=== PATIENT | male | born 1950 | race Caucasian/White ===

== ENCOUNTER 2025-03-12 17:37 | Inpatient (IN) ==
--- NOTE | 2025-03-12 17:56 | Emergency Department Note ---
History of Present Illness General Chief complaint: Heart Alert Stated complaint: HEART ALERT Time Seen by Provider: 03/12/25 17:46 Source: patient Mode of arrival: EMS History of Present Illness Patient is a 75-year-old male who was sent over from [facility] as a STEMI alert. Fluids chest pain started around noon today. He took 7 doses of 324 mg of aspirin prior to arrival. He did receive morphine and initial dose of heparin. Pain improved on arrival. Past Med/Surg History Problem List (Updated 03/12/25 @ 17:56 by Colton Aceves MD) ST elevation (STEMI) myocardial infarction (Acute) Social History Smoking Status: Current every day smoker Preferred Language: Niuean Feels Safe at Home: Yes Review of Systems Review of systems negative outside of positive findings mentioned in HPI. Physical Exam Vital Signs Vital Signs - 24 hr 03/12/25 17:44 Temperature 36.7 C Temperature Source Oral Pulse Rate 73 Respiratory Rate 19 Respiratory Effort / Characteristics Non-Labored Spontaneous Respiratory Depth Normal Respiratory Pattern Regular Blood Pressure 180/93 H Blood Pressure Mean 122 Pulse Oximetry 97 Oxygen Delivery Method Room Air Sepsis Recent Fever Within 48 Hours No Sepsis New/Unexplained Change in Mental Status N/A Sepsis Action Taken by Nursing No Action Required See below. Constitutional WD/WN, vitals as above Respiratory normal respiratory effort, lungs clear to auscultation Cardiovascular RRR, no murmur, no edema Medical Decision Making Differential Diagnosis DDx includes but not limited to: STEMI ECG Data Attestation: I personally reviewed and interpreted this ECG as follows: Indication: + chest pain and + other (Repeat ) Rate (beats per minute): 77 Rhythm: + sinus rhythm and + other (Frequent PACs ) ECG ST segments: + ST elevation (Inferolateral ) Comparison ECG Date: no prior available MDM Narrative Patient is a 75-year-old male who stepped accepted as a STEMI transfer from [facility]. Hemodynamically stable on arrival. Heart alert was activated after I reviewed initial transmitted EKG prior to arrival. Dr. Acosta with cardiology at bedside upon patient arrival with plans to to Technical Supervisor for definitive management. Will be admitted to hospitalist service post cath. Stable for transfer from ED to labor and delivery nurse. Impression & Plan ST elevation (STEMI) myocardial infarction Discharge Plan Visit Data Chief Complaint: Heart Alert Stated Complaint: HEART ALERT ED Provider: Colton Aceves Discharge Problem: ST elevation (STEMI) myocardial infarction Patient Disposition: Admitted As Inpatient Condition: Serious Discharge Instructions Interventions: ED Discharge Assessment Last Done: 03/12/25 17:53 Forms Stand Alone Forms: [facility] Referrals Referrals: PCP,NO [Primary Care Provider] -
[2025-03-12] MEDS: EPTIFIBATIDE 2 MG/ML 10 ML VIAL (CATH LAB USE ONLY) IV ONE ×2 (18:52→18:59)
[2025-03-12] MEDS: NITROGLYCERIN/D5W 100MCG/ML 20ML SYR ONE (18:52)
[2025-03-12] MEDS: niCARdipine 2,000 MCG/20 ML SYR ONE (18:52)
[2025-03-12] MEDS: EPTIFIBATIDE 0.75 MG/ML 75MG VIAL (CATH LAB USE ONLY) IV ONE (18:53)
[2025-03-12] MEDS: OPTIRAY 350 ONE (19:24)
[2025-03-12] MEDS: HEPARIN (PORCINE) 1000 UNIT/ML 10 ML (CATH LAB USE ONLY) ONE (19:24)
[2025-03-12] MEDS: MIDAZOLAM HCL 1 MG/ML 2ML VIAL ONE (19:24)
[2025-03-12] MEDS: ATROPINE SULFATE 0.1 MG/ML 10ML SYR IV ONE (19:25)
[2025-03-12] MEDS: CLOPIDOGREL BISULFATE 300 MG TAB ONE (19:30)
--- NOTE | 2025-03-12 19:33 | Post Anesthesia Assessment ---
Date of Service March 12, 2025 Post Sedation Assessment Vital Signs Temp Pulse Resp BP Pulse Ox O2 Del Method 03/12/25 17:44 36.7 C 73 19 180/93 H 97 Room Air Recovery Score Activity: Moves 4 extremities Respiration: Deep Breath/Cough Circulation: +/-20% PreAnes Value Consciousness: Fully Awake Oxygen Saturation: > 92% On Room Air Discharge Sedation Level of Care: Fast Track Phase II Post Sedation Plan On clinical assessment, the patient appears to have tolerated the sedation without complications. Patient is recovering as anticipated. Patient will continue to be monitored by nursing and may be discharged when sedation discharge criteria are met per below protocol. Upon Completions of procedure up to 15 minutes continue every 5 minute vital signs and the P.A.R. score; then discharge to a Phase I or Fast Track to Phase II per the following guidelines: * Discharge Patient to appropriate Phase II area if PAR is 8 or greater or return to pre- procedure baseline. The post - procedure orders will be as directed. * If PAR score is less than 8 or not return to pre-procedure baseline then patient will follow Phase I monitoring till PAR is reached for Phase II. The Phase I may be done in procedure room or may call to secure a Phase I area. * If naloxone or flumazenil are used for reversal, hold in Phase I for continued monitoring from when last reversal dose was given for a minimum of 60 minutes or longer pending the nurse and/or physician discretion of patient condition before discharge to Phase II. Please call the Sedation Physician to re-evaluate and complete post-note for discharge to Phase II area. Do NOT discharge from procedure sedation or Phase 1 until post- sedation evaluation note is complete by procedure /sedation MD Sedation Discharge Instructions to be given to the patient at discharge to home. [facility] Procedure Codes (Charges) Indication for Procedure Indication for procedure: STEMI
--- NOTE | 2025-03-12 19:35 | Pre Anesthesia Assessment ---
Date of Service March 12, 2025 Pre Sedation Assessment Vital Signs Temp Pulse Resp BP Pulse Ox O2 Del Method 03/12/25 17:44 36.7 C 73 19 180/93 H 97 Room Air Cardiovascular RRR, no murmur, no edema Respiratory normal respiratory effort, lungs clear to auscultation Pre-Sedation Airway Assessment Smoking Status: Current every day smoker class IV ASA 4 Notes The planned sedation has been discussed with the patient. Informed Consent was obtained. I have identified the patient, determined the appropriateness of sedation and have assessed the patient immediately prior to the procedure. All medicine(s) and interventions are by my order. THIS WAS A LATE ENTRY FOR EMERGENCYPROCEDURE.
[2025-03-12] MEDS ORDERED: EPTIFIBATIDE BOLUS/DRIP IV STA (19:49)
[2025-03-12] MEDS ORDERED: ONDANSETRON INJ 2 MG/ML 2 ML VIAL IV PRN (19:49)
[2025-03-12] MEDS ORDERED: ATROPINE SULFATE 0.1 MG/ML 10ML SYR IV PRN (19:49)
--- NOTE | 2025-03-12 20:09 | Post Operative Brief Note ---
Cardiology Brief Post Op Date of Surgery March 12, 2025 Pre & Post Diagnosis Operation Date: 03/12/25 05:45 <No data on this case meets the specified criteria> Procedure 1. Selective right and left coronary angiography 2. PCI of RCA for acute ST elevation IN Brief description: Patient brought to the cardiac catheterization suite as an emergency for acute inferior ST elevation IN. Shaved and prepped in the usual sterile fashion. Right radial access obtained. Medications including intra-arterial nicardipine, intra-arterial nitroglycerin, IV heparin, fentanyl, and Versed were all utilized. Left coronary angiography in orthogonal views. Right coronary angiography in orthogonal views. Given findings on diagnostic coronary angiography he then underwent PCI of the RCA. 4 overlapped drug-eluting stents were utilized. Right coronary stented proximally to early distal. GILMER 0 flow improved to GILMER-3 flow. The PDA also became patent. The posterolateral branch remained occluded. Summary: 1. Patient has severe multivessel coronary disease including left main, LAD, and circumflex with branches. There is [id number] collateralization. 2. Culprit vessel for inferior ST elevation IN was the RCA. This was 100% occluded proximally with collateralization to the distal branch vessel. 3. Successful complex and extensive stenting of the RCA with 4 overlapped drug- eluting stents. 4. Patient will be on aspirin 325 mg daily, was loaded with Plavix 600 mg p.o. x 1 and will continue with 75 mg p.o. daily, and was also provided with Integrilin as the double bolus administration and drip to be continued for 12 hours. 5. Guideline directed medical therapy for secondary prevention of coronary disease initiated with aspirin, metoprolol tartrate, losartan, and atorvastatin. These will be titrated to achieve clinical targets. 6. Because of patient's extensive left coronary system disease we will need to be vigilant for recurrent symptoms. He will be considered for transfer to tertiary center if his left coronary disease becomes problematic. Ideally, he would wait 30 days minimum for any bypass surgery done in an elective manner. 7. Anticipate the patient will require hospitalization for a minimum of 72 hours and potentially longer pending evolution of his clinical course. Banking Representative López Acosta MD, PhD Project Engineering Manager Emmy Khalil CHECK SERVICES CLERK Estimated Blood Loss 5 Findings Consistent with Post-Op Diagnosis Anesthesia Type RN Sedation Complications none Disposition Disposition: Surgical ICU [facility] Cardiac Procedure Charge Indication for Procedure Indication for procedure: Acute ST elevation IN.
--- NOTE | 2025-03-12 20:14 | History & Physical Report ---
Date of Service March 12, 2025 Assessment & Plan (1) ST elevation (STEMI) myocardial infarction: (2) HTN (hypertension): (3) Atherogenic dyslipidemia: (4) Current smoker: Plan The patient was transferred to [facility] emergency department from [facility] as a STEMI alert. He had developed chest pain around noon today. He had taken 7 doses of 324 mg of aspirin prior to arrival there. He did receive morphine 4 mg IV, and was started on a heparin bolus/drip prior to transfer. He has a previous history of hypertension, coronary disease, atherogenic dyslipidemia, and benign essential hypertension. He was taken emergently to the cardiac Elementary Ell Teacher by interventional cardiology Dr. Acosta. He is being admitted to the ICU postprocedure in stable condition, having received 4 overlapping drug-eluting stents to the RCA, proximal to early distal. STEMI/CAD/hypertension- Status post cardiac catheterization emergently for with placement of 4 overlapping ROLO to the RCA lesion proximal to early distal. Post cath orders per interventional cardiology Dr. Acosta. Continuing on Integrilin infusion Metoprolol tartrate 25 mg p.o. twice daily, Ecotrin 325 mg p.o. every morning, clopidogrel 75 mg p.o. every morning, losartan 25 mg p.o. every morning. Hyperlipidemia- Atorvastatin 40 mg every morning. Fasting lipid panel in the a.m. Hemoglobin A1c in the a.m. Tobacco use disorder- Cessation counseling Patient refused patch GERD- Pantoprazole 40 mg every morning. History of Present Illness Chief Complaint: The patient was transferred to [facility] emergency department from [facility] as a STEMI alert. He had developed chest pain around noon today. He had taken several doses of 324 mg of aspirin prior to arrival. He did receive morphine 4 mg IV, and was started on a heparin bolus/drip prior to transfer. He has a previous history of hypertension, coronary disease, atherogenic dyslipidemia, benign essential hypertension. He was taken emergently to the cardiac Elementary [employer] Teacher by interventional cardiology Dr. Acosta. He is being admitted to the ICU postprocedure in stable condition, having received 4 overlapping drug-eluting stents to the RCA, proximal to early distal. Primary Care Provider: NO PCP Allergies Allergy/AdvReac Type Severity Reaction Status Date / Time Penicillins Allergy Rash Verified 03/12/25 20:24 Past Med/Surg History Problem List (Updated 03/13/25 @ 01:02 by Shadi Brizuela MD) HTN (hypertension) Coronary artery disease Atherogenic dyslipidemia ST elevation (STEMI) myocardial infarction (Acute) Medical History (Updated 03/13/25 @ 01:02 by Shadi Brizuela MD) Alcohol use Current smoker GERD (gastroesophageal reflux disease) Family History (Updated 03/12/25 @ 20:37 by PRADIP Morris) Father Coronary heart disease Myocardial infarction Hypertension Heart disease Brother Coronary heart disease Myocardial infarction Hypertension Heart disease Mother Kidney disease Grandmother Stroke Social History Smoking Status: Current every day smoker Tobacco Type: Cigarettes Cigarettes Per Day: 1.5 packs/day; Hx Alcohol Use: Yes Alcohol type: beer Hx Substance Use: No Preferred Language: Surinamese Communication Ability: Effective Flash Welder Required: No Beliefs That Will Affect Care: None Current Living Situation: Alone Feels Safe at Home: Yes Assistive Devices: Glasses Review of Systems Review of Systems: The patient, seen postprocedure, denies chest pain, palpitations, shortness of breath, dyspnea on exertion, cough, lower extremity swelling, sore throat, fevers, chills, sweats, nausea, vomiting, diarrhea, constipation, abdominal pain, pelvic pain, blood in urine or stool, dysuria, urinary frequency or urgency, lightheadedness, dizziness, headache, memory loss, loss of consciousness, imbalance, focal or generalized weakness, numbness or tingling in arms or legs, generalized arthralgias or myalgias, back or neck pain, or night sweats. The review of systems is otherwise negative other than for that already noted above, and at least 10 systems have been reviewed. Physical Exam Physical Exam: The patient is awake, alert and oriented 3, well developed and well nourished, normocephalic and atraumatic, lying in bed and in no acute distress. HEENT--PERRL, EOMI, mucous membranes and oropharynx normal Neck--supple. No JVD. No bruits. Thyroid normal, trachea midline, no adenopathy. Heart--normal S1 and S2. No murmurs, rubs or gallops. Lungs--clear bilaterally, no respiratory distress, no accessory muscle use. Abdomen--normal bowel sounds and soft. Nontender. Nondistended, no hernias or masses, no organomegaly. Extremities--No edema. Dermatologic--normal skin turgor, normal color, no abnormal lymph nodes, no rash. Neurologic--cranial nerves II through XII grossly intact. Rheumatologic--normal range of motion. Psychiatric--normal affect. Results & Data Results & Data Vital Signs (Past 12 Hours) Vital Signs Temp Pulse Resp BP Pulse Ox O2 Del Method 03/12/25 17:44 36.7 C 73 19 180/93 H 97 Room Air Laboratory Results Laboratory Results WBC 6.51 K/ul (4.8-10.8) 03/12/25 20:53 RBC 4.95 M/uL (4.70-6.10) 03/12/25 20:53 Hgb 15.6 g/dl (14.0-18.0) 03/12/25 20:53 Hct 44.0 % (42.0-52.0) 03/12/25 20:53 MCV 88.9 fL (80.0-100.0) 03/12/25 20:53 MCH 31.5 pg (25.0-34.0) 03/12/25 20:53 MCHC 35.5 g/dL (32.0-36.0) 03/12/25 20:53 RDW Std Deviation 45.2 fL (36.4-46.3) 03/12/25 20:53 RDW Coeff of Sherine 13.8 % (11.5-14.5) 03/12/25 20:53 Plt Count 164 K/uL (130-400) 03/12/25 20:53 MPV 10.7 fL (9.4-12.4) 03/12/25 20:53 Immature Gran % (Auto) 0.3 % 03/12/25 20:53 Neut % (Auto) 63.8 % 03/12/25 20:53 Lymph % (Auto) 27.8 % 03/12/25 20:53 [place] % (Auto) 7.1 % 03/12/25 20:53 Eos % (Auto) 0.5 % 03/12/25 20:53 Baso % (Auto) 0.5 % 03/12/25:53 Neut # (Auto) 4.16 K/uL (1.40-6.50) 03/12/25 20:53 Lymph # (Auto) 1.81 K/uL (1.20-3.40) 03/12/25 20:53 [place] # (Auto) 0.46 K/uL (0.11-0.59) 03/12/25 20:53 Eos # (Auto) 0.03 K/uL (0.00-0.50) 03/12/25 20:53 Baso # (Auto) 0.03 K/uL (0.00-0.20) 03/12/25 20:53 Immature Gran # (Auto) 0.02 K/uL (0.01-0.20) 03/12/25 20:53 Activ Coag Time Kaolin 250 SECONDS (94-140) H 03/12/25 19:25 Sodium 137 mmol/L (136-145) 03/12/25 20:53 Potassium 3.5 mmol/L (3.5-5.1) 03/12/25 20:53 Chloride 103 mmol/L (98-107) 03/12/25 20:53 Carbon Dioxide 25 mmol/L (21-32) 03/12/25 20:53 Anion Gap 9 (3-11) 03/12/25 20:53 BUN 11 mg/dl (6-23) 03/12/25 20:53 Creatinine 0.68 mg/dl (0.6-1.4) 03/12/25 20:53 Est Cr Clr Drug Dosing 95.4 ml/min 03/12/25 20:53 eGFR 96.33 03/12/25 20:53 BUN/Creatinine Ratio 16.2 (10-20) 03/12/25 20:53 Glucose 115 mg/dl (70-99(Fasting)) H 03/12/25 20:53 POC Glucose 104 mg/dl (70-99) H 03/12/25 20:43 Calcium 8.9 mg/dl (8.6-10.3) 03/12/25 20:53 Magnesium 1.9 mg/dl (1.7-2.4) 03/12/25 20:53 Nasal Screen MRSA (PCR) Negative (Negative) 03/12/25 Unknown Code Status & VTE Plan Code Status full code VTE Prophylaxis Plan VTE Prophylaxis will be ordered: Yes PG Care Time/CCT Total # of Minutes Spent Total Time Spent with Patient: Total time spent is greater than 50% in coordination of care (as documented) at patient's floor/unit and/or counseling patient: Coding Level of Care Code 42049 INT INP/OBS CARE 3/75MIN Diagnoses ST elevation (STEMI) myocardial infarction I21.3 HTN (hypertension) I10 Atherogenic dyslipidemia E78.5 Current smoker F17.200
--- NOTE | 2025-03-12 20:26 | Cardiology Consultation ---
Date of Consultation March 12, 2025 Assessment & Plan (1) ST elevation (STEMI) myocardial infarction: Status post PCI of the RCA. Severe residual disease. Treated with 4 overlapping drug-eluting stents. Will remain on aspirin 325 mg daily plus Plavix 75 mg p.o. daily for up to 1-2 years. Also placed on Integrilin drip to be continued for 12 hours until Plavix is fully loaded and active. Echocardiogram was requested to evaluate EF, etc. I anticipate that he will require 72 hours minimum admission given his complex disease. (2) Benign essential hypertension: Blood pressure very elevated on admission. We have placed him on metoprolol to tartrate 25 mg p.o. twice daily and losartan 25 mg p.o. daily. We will titrate his regimen to achieve systolic blood pressure less than 140 mmHg. (3) Atherogenic dyslipidemia: Patient is high risk. High intensity statin therapy initiated with atorvastatin 40 mg daily. A fasting lipid panel has been requested. We are targeting a 50% reduction in his baseline LDL. Further recommendations pending results of the lipid panel. (4) Coronary artery disease: Severe multivessel coronary disease. He has severe residual disease in the left coronary system which may require surgical revascularization. He received drug- eluting stents to the RCA for acute MS. The stents were Aj ROLO which can allow for discontinuation of dual antiplatelet therapy as early as 30 days post implant. We would consider that if he is to undergo surgery within that timeframe. I am interested to see how he does with regards to symptoms. If he has no symptoms we can delay surgical evaluation. However, if he has symptoms with exertion despite the PCI then I think we will recommend an early evaluation at tertiary center. We also can provide antianginals when appropriate. I have recommended that he participate in cardiac rehab. Certainly needs to stop smoking. We will check hemoglobin A1c to see if he has occult diabetes. History of Present Illness Reason for Consultation: Acute MS Attending Physician: López Acosta MD, PhD History of Present Illness Pleasant 75-year-old gentleman from [place] who visits his daughter regularly every other month here in [place]. He developed upper back pain and a severe headache earlier today beginning around 12:30 PM. He took 7 aspirin through the course of the early afternoon and eventually sought medical attention at the [facility]. There, EKG demonstrated evidence of acute inferior ST elevation MS. He was transported via ambulance to the [facility] emergency department where I saw him on arrival. At that time, he denied any chest pain or shortness of breath and stated that his back pain was significantly improved. EKG done in the emergency department was consistent with acute inferior ST elevation MS. After informed consent was provided he was taken emergently to the cardiac catheterization suite where he underwent diagnostic coronary angiography. This revealed severe multivessel coronary disease involving the left main, circumflex and branches, as well as the LAD. The RCA was noted to be 100% occluded and there were [id number] collateralization. A coronary guidewire was successfully passed across the proximal occlusion and a complex multi stent procedure to open the RCA was performed. There was good angiographic outcome and he had no discomfort at the end of the procedure. The RCA was patent as was the PDA. Posterolateral branch was occluded and not amenable to PCI. He is now being admitted to the ICU for further workup and management. As it turns out, patient has been having headaches and upper back pain on and off for the past few weeks. Usually responds well to aspirin. His blood pressure was noted to be quite elevated on presentation. His daughter tells me that he lives in [place] and comes to visit her and the kids about every other month. He smokes a pack a day and has done so for many decades. In [place] he has siblings who live nearby but he does not live in the home with anyone else. His daughter and I discussed his residual coronary disease and my recommendation that he be seen in the near future at a tertiary center regarding revascula rization. Had he not presented with acute MS now I would have recommended CABG based on the coronary angiography. She understands this. She is followed by [facility] primary care provider and feels that should he require surgery in the near future she would like to have him referred to [place]. We also discussed that the clinical course over the next 2 to 3 days will determine whether or not we need to plan for surgery in the near future or if that will be further down the road. He could certainly have surgery in [place] but it may be preferable for him to have his surgery locally since his family is here for support, etc. Allergies Allergy/AdvReac Type Severity Reaction Status Date / Time Penicillins Allergy Rash Verified 03/12/25 20:24 Patient History Social History Smoking Status: Current every day smoker Preferred Language: Maldivian Feels Safe at Home: Yes Review of Systems Review of Systems: Negative except as per HPI Physical Exam Constitutional: WD/WN, vitals as above Neck: No JVD Respiratory: Clear to auscultation bilaterally. No wheezing, rhonchi, or rales. Diminished air movement. Cardiovascular: Regular rate and rhythm with occasional ectopy. Do not appreciate any rubs or murmurs. 2+ distal pulses. Musculoskeletal: no cyanosis or clubbing, extremities motor strength 5/5 Neurologic: Cognition is intact. Speech is fluent. No focal deficits. Psychiatric: A+Ox3, euthymic affect Results & Data Vital Signs (Past 12 Hours) Vital Signs Temp Pulse Resp BP Pulse Ox O2 Del Method 03/12/25 17:44 36.7 C 73 19 180/93 H 97 Room Air PG Care Time/CCT Total # of Minutes Spent Total Time Spent with Patient: Total time spent is greater than 50% in coordination of care (as documented) at patient's floor/unit and/or counseling patient: 90 minutes critical care time was spent in the initial evaluation of the patient, review of available records, discussion with the family, ER staff, and the patient himself. This also includes the time spent in formulation and implementation of plan of care and all associated documentation. This time is exclusive of the time spent for the procedure. Coding Level of Care Code 49411 CRITICAL CARE 1ST 30-74M Diagnoses ST elevation (STEMI) myocardial infarction I21.3 Benign essential hypertension I10 Atherogenic dyslipidemia E78.5 Coronary artery disease I25.10 Time Spent (min) 90
--- NOTE | 2025-03-12 20:42 | Critical Care Consultation ---
Date of Consultation March 12, 2025 Assessment & Plan (1) ST elevation (STEMI) myocardial infarction: (2) HTN (hypertension): (3) Coronary artery disease: Plan Reason Critically Ill: 75 YOM transfer from outside [facility] for STEMI, taken urgently to the medical lab scientist where he received 4 ROLO to the RCA. To the ICU for continued monitoring and hemodynamic support Neuro - No acute needs. ETOH use CAM ICU: NEGATIVE - attempt to keep circadian rhythm, frequent re-orientation with attempt to minimize ICU delirium - Follow for ETOH withdrawal- 3-4 beers per day - PAWS - 0 Cardiac - STEMI, HTN - patient presents with headache and back pain noted STEMI on ECG- Received 4 ROLO to RCA - BB per cards- will receive dose now - ARB per cards- will dose now related to hypertension - Antiplatelets per cards- Currently ordered for ASA, Plavix and Integrilin infusion - ECHO in am- further GDMT pending results - Lipid Panel in AM- Atorvastatin 40mg daily ordered by cards - HGBa1C- in am- GDMT as directed by results - HTN- likely long standing with history of headaches - does not follow with PCP - As above Losartan now, BB now- if resistant to lowering will add IV agents- Hydralazine, Cardene if needed Respiratory - No acute need- hx Current smoker - will need smoking cessation counseling and further support as needed- currently declines nicotine patch - education will need to be provided in regards to smoking and stent occlusion GI - No acute needs. Hx GERD - PPI - Diet advance as tolerated RENAL/LYTES - No acute needs - BMP electrolytes now- replete if indicated - Keep K ~4.0, MG ~ 2.0 - No acute needs - voiding spontaneously ENDO - Follow HGBa1c, BG checks- ICU hyperglycemic protocol- goal <180mg/dl HEME - No acute needs - Follow for evidence of bleeding, transfuse for HGB <8.0 or symptomatic, ID - NO concerns at this time for infective causes LINES/IV ACCESS - Continue use of these lines DVT PROPHYLAXIS - SCDS, ambulation, ASA, Plavix DISPO: ICU until hemodynamics and symptomatology are proven stable. I have personally spent 45 minutes of care time in the direct management of this patient. This is a life/limb threatening event. This includes time spent evaluating patient, direct bedside care, chart review, placing orders, interpretation of diagnostic studies, discussion with consultants, patient, and family members, as well as other required patient management activities. This time is exclusive of all separately billable procedures, and separate from and in addition to any other critical care service time. Thank you for allowing us to participate in the care of this patient. Please refer to my attending physician's documentation for any further recommendations. Supervising Physician Co-Signing Physician Notes I, James Ingram MD, reviewed the physical exam, assessment, plan, and management as documented by the Advanced Care Provider PRADIP Morris, for this patient encounter. I discussed the case with them, confirmed the findings, and I concur with the proposed plan of care. I was available for consultation throughout the encounter and provided guidance as needed. History of Present Illness Reason for Consultation: STEMI s/p 4 ROLO to RCA Requesting Physician: Shadi Brizuela MD Attending Physician: Shadi Brizuela MD History of Present Illness 75 YOM that does not follow with PCP and only reports being on PPI at home. Patient reports smoking 1.5 PPD and Drinking Alcohol 3-4 beers per day. Reports family history of CT with cardiac arrest of father (60s), and Brother CT that at 73YO, reports history of stroke in grandmother. Patient reports that around 12-1230 today he noted a headache that started in his jaw, went up to the top of his head and then down his neck into his back. He reports that he did walk the dog, and noted that the headache and back pain got worse. He reports that he took 3-5 aspirin 324mg and laid down, this did not relieve the pain so his daughter took him to [facility] ER, where he had routine labs performed and ECG. There was concern for STEMI and he was transferred to [facility] where he arrived in the ED, was evaluated by interventional cardiology and taken urgently to the medical lab scientist. Patient received 4 RLOO to the RCA, and initiated on Integrilin infusion. He was then transferred to the ICU for continued monitoring and care. Patient is awake and alert on room air, he is with right radial access site with TR band in place, chest pain/back pain/headache free. He is hypertensive on arrival to the ICU. Patient reports that he has been having these headaches and back pain that started in the summer, but would normally go away with aspirin. The back pain was consistently in between his shoulder blades and up the back of his neck. The headaches were always bilateral frontal to top of head then as above back down his neck. He has never noted any difficulty breathing with or associated other symptoms or radiation of pain. Patient reports no other known history of elevated lipids, DM, Renal problems, respiratory problems. CODE: FULL Allergies Allergy/AdvReac Type Severity Reaction Status Date / Time Penicillins Allergy Rash Verified 03/12/25 20:24 Patient History Medical History (Updated 03/13/25 @ 01:02 by Shadi Brizuela MD) Alcohol use Current smoker GERD (gastroesophageal reflux disease) Family History (Updated 03/12/25 @ 20:37 by PRADIP Morris) Father Coronary heart disease Myocardial infarction Hypertension Heart disease Brother Coronary heart disease Myocardial infarction Hypertension Heart disease Mother Kidney disease Grandmother Stroke Social History Smoking Status: Current every day smoker Tobacco Type: Cigarettes Cigarettes Per Day: 1.5 packs/day; Hx Alcohol Use: Yes Alcohol type: beer Hx Substance Use: No Preferred Language: Israeli Communication Ability: Effective Gaggerman Required: No Beliefs That Will Affect Care: None Current Living Situation: Alone Other Information That Helps Us Care for You: No Feels Safe at Home: Yes Safety Concerns: Feels Safe At This Time Assistive Devices: Glasses Review of Systems Review of Systems: REVIEW OF SYSTEMS: Constitutional: No fever, sweats or chills Eyes: No diplopia, no worsening or blurred vision ENT: normal hearing, no trouble swallowing Respiratory: (+) smoker, No cough, sputum, dyspnea at rest or on exertion Cardiovascular: (+) headache, back pain (resolved), No current chest pain, tightness or palpitations Abdomen: No pain, nausea, vomiting, diarrhea or constipation Musculoskeletal: No joint pain, calf pain, swelling Neurologic: No weakness, numbness/tingling, or balance problems Psychiatric: No anxiety or depression Skin: No rash or itch Physical Exam Physical Exam: PHYSICAL EXAM: General: awake, alert, no apparent distress Head: Normocephalic, atraumatic ENT: PERRL, EOMI, no pharyngeal exudate, mucous membranes moist Neuro: AAO x 3, speech clear and appropriate, strength intact bilaterally 5/5, sensation intact and equal all extremities and dermatomes, no pronator drift Chest: equal rise and fall of the chest, no accessory muscle use, Clear to auscultation, on room air, Cardiac: Regular rate and rhythm, telemetry reviewed- NSR, skin warm dry, cap refill <3 seconds, peripheral pulses +2 no JVD, no murmur, no edema, RIGHT RADIAL TR band in place, no hematoma GI: NABS x 4 quadrants, soft, nontender to palpation, no rebound, guarding or tenderness : Spontaneously voiding, no pain, Psych: Normal mood and affect Skin: no rash or erythema Results & Data Results & Data Vital Signs (Past 12 Hours) Vital Signs Temp Pulse Resp BP Pulse Ox O2 Del Method 03/12/25 17:44 36.7 C 73 19 180/93 H 97 Room Air Laboratory Results Abnormal lab results 03/12/25 03/12/25 03/12/25 Range/Units 18:11 18:31 18:55 Activ Coag Time Kaolin 170 H 245 H 256 H (94-140) SECONDS POC Glucose (70-99) mg/dl 03/12/25 03/12/25 Range/Units 19:25 20:43 Activ Coag Time Kaolin 250 H (94-140) SECONDS POC Glucose 104 H (70-99) mg/dl Medications Administered Discontinued Medications Atropine Sulfate (Atropine Sulfate 0.1 Mg/Ml 10ml Syr) Confirm Administered Dose 1 mg IV .STK-MED ONE Stop: 03/12/25 18:06 Last Admin: 03/12/25 19:25 Dose: Not Given Documented By: KEYANNA Clopidogrel Bisulfate (Clopidogrel Bisulfate 300 Mg Tab) Confirm Administered Dose 600 mg .ROUTE .STK-MED ONE Stop: 03/12/25 19:28 Last Admin: 03/12/25 19:30 Dose: 600 mg Documented By: KEYANNA Eptifibatide (Eptifibatide 2 Mg/Ml 10 Ml Vial (Cloth Designer Use Only)) Confirm Administered Dose 20 mg IV .STK-MED ONE Stop: 03/12/25 18:23 Last Admin: 03/12/25 18:52 Dose: 6.8 ml Documented By: KEYANNA Eptifibatide (Eptifibatide 0.75 Mg/Ml 75mg Vial (Cloth Designer Use Only)) Confirm Administered Dose 75 mg IV .STK-MED ONE Stop: 03/12/25 18:24 Last Admin: 03/12/25 18:53 Dose: 75 mg Documented By: NS Eptifibatide (Eptifibatide 2 Mg/Ml 10 Ml Vial (Cloth Designer Use Only)) Confirm Administered Dose 20 mg IV .STK-MED ONE Stop: 03/12/25 18:56 Last Admin: 03/12/25 18:59 Dose: 6.8 ml Documented By: NS Fentanyl Citrate (Fentanyl Citrate Pf 100 Mcg/2 Ml Vial) Confirm Administered Dose 100 mcg .ROUTE .STK-MED ONE Stop: 03/12/25 17:46 Last Increment: 03/12/25 19:24 Dose: 25 mcg Documented By: NS Heparin Sodium (Porcine) (Heparin (Porcine) 1000 Unit/Ml 10 Ml (Cloth Designer Use Only)) Confirm Administered Dose 10,000 units .ROUTE .STK-MED ONE Stop: 03/12/25 17:46 Last Admin: 03/12/25 19:24 Dose: 8,500 units Documented By: NS Heparin Sodium/Sodium Chloride (Heparin In Nss Infusion 1000 Unit/500 Ml (2 U/Ml) Bag) Confirm Administered Dose 3,000 units IV .STK-MED ONE Stop: 03/12/25 17:46 Last Admin: 03/12/25 18:52 Dose: 3,000 units Documented By: NS Ioversol (Optiray 350) Confirm Administered Dose 1 ml .ROUTE .STK-MED ONE Stop: 03/12/25 17:47 Last Admin: 03/12/25 19:24 Dose: 250 ml Documented By: NS Midazolam HCl (Midazolam Hcl 1 Mg/Ml 2ml Vial) Confirm Administered Dose 2 mg .ROUTE .STK-MED ONE Stop: 03/12/25 17:46 Last Increment: 03/12/25 19:24 Dose: 1 mg Documented By: NS Nicardipine HCl (Nicardipine 2,000 Mcg/20 Ml Syr) Confirm Administered Dose 2,000 mcg .ROUTE .STK-MED ONE Stop: 03/12/25 17:47 Last Admin: 03/12/25 18:52 Dose: 2,000 mcg Documented By: NS Nitroglycerin/Dextrose (Nitroglycerin/D5w 100mcg/Ml 20ml Syr) Confirm Administered Dose 2,000 mcg .ROUTE .STK-MED ONE Stop: 03/12/25 17:46 Last Admin: 03/12/25 18:52 Dose: 2,000 mcg Documented By: NS ECG Additional Comments: Undetermined rhythm Inferior infarct(cited on or [id number]) Anterior infarct(cited on or [id number]) T wave abnormality, consider lateral ischemia Abnormal ECG When compared with ECG [id number] 17:44,(unconfirmed) Current undetermined rhythm precludes rhythm comparison, needs review Serial changes of evolvingAnterior infarctPresent Serial changes of evolvingInferior infarctPresent Coding Level of Care Code 55035 IN/OBS CONSULT LVL 3,45M Diagnoses ST elevation (STEMI) myocardial infarction I21.3 HTN (hypertension) I10 Coronary artery disease I25.10
[2025-03-12] MEDS: METOPROLOL TARTRATE 25 MG TAB PO SCH (20:47)
[2025-03-12] MEDS: LOSARTAN POTASSIUM 25 MG TAB PO STA (20:48)
[2025-03-12] MEDS: SODIUM CHLORIDE 0.9% 1,000 ML IV SCH (20:48)
[2025-03-12] MEDS: EPTIFIBATIDE 75 MG/100 ML VIAL IV SCH (20:48)
[2025-03-12 21:14] LABS: Hematocrit (blood only) 44.0 % (42.0-52.0); Hemoglobin 15.6 g/dl (14.0-18.0); Immature Granulocytes # (auto) 0.02 K/uL (0.01-0.20); Immature Granulocytes % (auto) 0.3 %; Mean Corpuscular Hemoglobin 31.5 pg (25.0-34.0); Mean Corpuscular Volume 88.9 fL (80.0-100.0); Platelet Count 164 K/uL (130-400); RDW Standard Deviation 45.2 fL (36.4-46.3); Red Blood Count 4.95 M/uL (4.70-6.10); White Blood Count 6.51 K/ul (4.8-10.8)
[2025-03-12 21:23] LABS: Anion Gap 9.0 (3-11); Blood Urea Nitrogen 11.0 mg/dl (6-23); Calcium 8.9 mg/dl (8.6-10.3); Carbon Dioxide 25.0 mmol/L (21-32); Chloride 103.0 mmol/L (98-107); Creatinine Clr Calc Pharmacy 95.4 ml/min; Glucose 115.0 mg/dl (70-99(Fasting)); Magnesium 1.9 mg/dl (1.7-2.4); Potassium 3.5 mmol/L (3.5-5.1); Sodium 137.0 mmol/L (136-145)
[2025-03-13 05:41] LABS: Cholesterol 177.0 mg/dl (0-200); HDL Cholesterol 41.0 mg/dl; Triglycerides 104.0 mg/dl (0-150)
[2025-03-13] MEDS: POTASSIUM CHLORIDE CRTAB 20 MEQ TABCR PO STA (06:09)
--- NOTE | 2025-03-13 07:31 | Critical Care Progress Note ---
Date of Service March 13, 2025 Assessment & Plan (1) ST elevation (STEMI) myocardial infarction: (2) HTN (hypertension): (3) Coronary artery disease: Plan Reason Critically Ill: 75 YOM transfer from outside [facility] for STEMI, taken urgently to the labor custodian where he received 4 ROLO to the RCA. To the ICU for continued monitoring and hemodynamic support Neuro - No acute needs. ETOH use CAM ICU: NEGATIVE - attempt to keep circadian rhythm, frequent re-orientation with attempt to minimize ICU delirium - Follow for ETOH withdrawal- 3-4 beers per day - PAWS - 0 Cardiac - STEMI, HTN - patient presents with headache and back pain noted STEMI on ECG- Received 4 D ES to RCA - BB per cards- - ARB per cards- - Antiplatelets per cards- Currently ordered for ASA, Plavix Respiratory - No acute need- hx Current smoker - will need smoking cessation counseling and further support as needed- currently declines nicotine patch - education will need to be provided in regards to smoking and stent occlusion GI - No acute needs. Hx GERD - PPI - Diet advance as tolerated RENAL/LYTES - No acute needs - BMP electrolytes now- replete if indicated - Keep K ~4.0, MG ~ 2.0 - No acute needs - voiding spontaneously ENDO - Follow HGBa1c, BG checks- ICU hyperglycemic protocol- goal <180mg/dl HEME - No acute needs - Follow for evidence of bleeding, transfuse for HGB <8.0 or symptomatic, ID - NO concerns at this time for infective causes DVT PROPHYLAXIS - SCDs, ambulation DISPO: May downgrade to Telemetry when OK with Cardiology. Admission and Anticipated Discharge Date Admission Date: March 12, 2025 Subjective The patient is a very pleasant 75-year-old gentleman who presented to the ED after developing acute chest pain around noon, which prompted his daughter to bring him for evaluation. He had experienced upper back pain and a severe headache beginning around 12:30 PM, with the pain radiating from his jaw to the top of his head and down his neck into his back. Despite taking multiple doses of aspirin (7 doses of 324 mg), his symptoms persisted, leading to his initial evaluation at [facility], where an ECG demonstrated an acute inferior STEMI. He was subsequently transferred as a STEMI alert to [facility] for definitive management. The patient was emergently taken to the cardiac catheterization suite. Coronary angiography revealed severe multivessel CAD, including significant disease in the left main, LAD, and circumflex arteries, with the RCA found to be 100% occluded. He underwent successful PCI of the RCA with placement of four overlapping drug-eluting stents, resulting in mormonism of GILMER-3 flow. The PDA was also made patent, though the posterolateral branch remained occluded and was not amenable to PCI. He tolerated the procedure well and was admitted to the ICU for further monitoring and management. The patient reported a history of recurrent headaches and upper back pain over the preceding weeks, which typically responded to aspirin. He is a current daily smoker (11.5 packs per day for many decades) and consumes 34 beers daily. He does not routinely follow with a primary care provider and only reported taking a PPI at home. There is a significant family history of IN and cardiac arrest in his father and brother, and a history of stroke in his grandmother. His hospital course included initiation of guideline-directed medical therapy for secondary prevention, including aspirin, clopidogrel, Integrilin infusion, metoprolol, losartan, and high-intensity statin therapy. He was counseled on smoking cessation, though he declined nicotine replacement. Plans were made for further risk stratification with echocardiography, fasting lipid panel, and hemoglobin A1c. Given his extensive left coronary system disease, he may require surgical revascularization in the future, and arrangements for follow-up at a tertiary center were discussed with his family. Past medical history included CAD, HTN, atherogenic dyslipidemia, GERD, and tobacco use disorder. He denied any known history of DM, CKD, or chronic respiratory problems. Note from 03/13/2025: The patient feels tired, but definitely better than tomorrow. Denies dyspnea at rest and denies chest pain or palpitations. Review of Systems Review of Systems: All systems reviewed & are unremarkable except as noted in HPI & below Physical Exam Physical Exam: General: In no acute distress, breathing room-air. Skin: Warm and dry to touch. Noobvious lesions. No hematoma at radial-artery insertion site. Eyes: Anicteric.Noconjunctival hyperemia or exudates.No periorbital edema. ENT: No oral thrush. No oropharyngeal erythema or exudates. Modified-Mallampati 3 (Hard and soft palate seen). Neck: No palpable masses or adenopathy. Respiratory: Normal breath sounds, no wheezing or crackles. No use of accessory muscles and no prolonged exhalation. Cardiac: Distant sounds, regular rhythm, no murmurs, no gallops, no rubs; could not appreciate JV pulse elevation. GI: Soft, nontender. Extremities No clubbing,no cyanosis,no edema. Neuro: No gross motor deficits. Seems appropriate. No facial-droop. Speech is clear. Results & Data Results & Data Vital Signs (Past 12 Hours) Vital Signs Temp Pulse Pulse Resp BP BP Pulse Ox 03/13/25 06:15 84 16 97 03/13/25 06:00 68 19 96 03/13/25 06:00 95/63 L 03/13/25 06:00 95/63 L 03/13/25 06:00 95/63 L 03/13/25 06:00 95/63 L 03/13/25 06:00 95/63 L 03/13/25 05:45 67 24 96 03/13/25 05:30 66 12 95 03/13/25 05:15 60 19 96 03/13/25 05:00 75 24 99 03/13/25 05:00 96/66 L 03/13/25 05:00 96/66 L 03/13/25 05:00 96/66 L 03/13/25 05:00 96/66 L 03/13/25 05:00 96/66 L 03/13/25 04:46 89/57 L 03/13/25 04:46 89/57 L 03/13/25 04:46 89/57 L 03/13/25 04:46 89/57 L 03/13/25 04:46 89/57 L 03/13/25 04:45 61 23 96 03/13/25 04:45 78/51 L 03/13/25 04:30 91/59 L 03/13/25 04:30 91/59 L 03/13/25 04:30 91/59 L 03/13/25 04:30 91/59 L 03/13/25 04:30 91/59 L 03/13/25 04:30 75 27 H 98 03/13/25 04:15 66 16 97 03/13/25 04:15 101/63 03/13/25 04:15 101/63 03/13/25 04:15 101/63 03/13/25 04:15 101/63 03/13/25 04:00 64 19 94 03/13/25 04:00 94/56 L 03/13/25 04:00 94/56 L 03/13/25 04:00 94/56 L 03/13/25 04:00 94/56 L 03/13/25 03:45 65 16 96 03/13/25 03:45 103/59 L 03/13/25 03:45 103/59 L 03/13/25 03:45 103/59 L 03/13/25 03:45 103/59 L 03/13/25 03:45 103/59 L 03/13/25 03:30 59 L 16 03/13/25 03:30 88/54 L 03/13/25 03:30 88/54 L 03/13/25 03:30 88/54 L 03/13/25 03:30 88/54 L 03/13/25 03:15 66 29 H 95 03/13/25 03:15 97/60 L 03/13/25 03:15 97/60 L 03/13/25 03:15 97/60 L 03/13/25 03:15 97/60 L 03/13/25 03:00 98/60 L 03/13/25 03:00 98/60 L 03/13/25 03:00 98/60 L 03/13/25 03:00 98/60 L 03/13/25 03:00 64 22 96 03/13/25 02:45 66 24 03/13/25 02:45 97/61 L 03/13/25 02:45 97/61 L 03/13/25 02:45 97/61 L 03/13/25 02:45 97/61 L 03/13/25 02:30 70 19 94 03/13/25 02:30 103/66 03/13/25 02:30 103/66 03/13/25 02:30 103/66 03/13/25 02:30 103/66 03/13/25 02:15 72 25 H 03/13/25 02:15 102/63 03/13/25 02:15 102/63 03/13/25 02:15 102/63 03/13/25 02:15 102/63 03/13/25 02:00 111/65 03/13/25 02:00 111/65 03/13/25 02:00 111/65 03/13/25 02:00 111/65 03/13/25 02:00 71 19 94 03/13/25 02:00 36.9 C 03/13/25 01:45 95/56 L 03/13/25 01:45 95/56 L 03/13/25 01:45 95/56 L 03/13/25 01:45 95/56 L 03/13/25 01:45 71 20 95 03/13/25 01:34 36.8 C 03/13/25 01:30 85/48 L 03/13/25 01:30 85/48 L 03/13/25 01:30 85/48 L 03/13/25 01:30 85/48 L 03/13/25 01:30 85/48 L 03/13/25 01:30 66 21 03/13/25 01:15 63 18 03/13/25 01:15 96/62 L 03/13/25 01:15 96/62 L 03/13/25 01:15 96/62 L 03/13/25 01:15 96/62 L 03/13/25 01:15 96/62 L 03/13/25 01:00 104/65 03/13/25 01:00 104/65 03/13/25 01:00 104/65 03/13/25 01:00 104/65 03/13/25 01:00 104/65 03/13/25 01:00 104/65 03/13/25 01:00 104/65 03/13/25 01:00 68 17 03/13/25 01:00 36.8 C 03/13/25 00:45 108/66 03/13/25 00:45 108/66 03/13/25 00:45 108/66 03/13/25 00:45 108/66 03/13/25 00:45 66 18 94 03/13/25 00:34 36.8 C 67 15 104/65 95 03/13/25 00:30 96/62 L 03/13/25 00:30 96/62 L 03/13/25 00:30 96/62 L 03/13/25 00:30 96/62 L 03/13/25 00:30 66 22 03/13/25 00:15 97/62 L 03/13/25 00:15 97/62 L 03/13/25 00:15 97/62 L 03/13/25 00:15 97/62 L 03/13/25 00:15 97/62 L 03/13/25 00:15 97/62 L 03/13/25 00:15 97/62 L 03/13/25 00:15 97/62 L 03/13/25 00:15 97/62 L 03/13/25 00:15 69 17 03/13/25 00:00 10303/13/25 00:00 10303/13/25 00:00 103/03/13/25 00:00 103/03/13/25 00:00 68 17 03/13/25 00:00 69 03/13/25 00:00 36.9 C 03/12/25 23:45 68 17 94 03/12/25 23:45 108/62 03/12/25 23:45 108/62 03/12/25 23:45 108/62 03/12/25 23:45 108/62 03/12/25 23:45 108/62 03/12/25 23:34 36.9 C 79 16 97/62 L 96 03/12/25 23:30 97/59 L 03/12/25 23:30 97/59 L 03/12/25 23:30 97/59 L 03/12/25 23:30 97/59 L 03/12/25 23:30 97/59 L 03/12/25 23:30 68 17 03/12/25 23:15 17 96 03/12/25 23:15 113/65 03/12/25 23:15 113/65 03/12/25 23:15 113/65 03/12/25 23:15 113/65 03/12/25 23:15 113/65 03/12/25 23:00 69 18 03/12/25 23:00 108/67 03/12/25 23:00 108/67 03/12/25 23:00 108/67 03/12/25 23:00 108/67 03/12/25 23:00 108/67 03/12/25 23:00 36.9 C 67 14 97/62 L 95 03/12/25 22:45 65 15 03/12/25 22:45 108/71 03/12/25 22:45 108/71 03/12/25 22:45 108/71 03/12/25 22:45 108/71 03/12/25 22:34 36.8 C 69 15 106/69 94 03/12/25 22:30 106/69 03/12/25 22:30 67 16 92 03/12/25 22:30 106/69 03/12/25 22:30 106/69 03/12/25 22:30 106/69 03/12/25 22:15 68 18 87 L 03/12/25 22:15 95/65 L 03/12/25 22:15 95/65 L 03/12/25 22:15 95/65 L 03/12/25 22:15 95/65 L 03/12/25 22:01 88/60 L 03/12/25 22:01 88/60 L 03/12/25 22:01 88/60 L 03/12/25 22:01 88/60 L 03/12/25 22:01 88/60 L 03/12/25 22:00 74/56 L 03/12/25 22:00 66 14 90 03/12/25 21:47 92/59 L 03/12/25 21:47 92/59 L 03/12/25 21:47 92/59 L 03/12/25 21:47 92/59 L 03/12/25 21:47 92/59 L 03/12/25 21:45 78/55 L 03/12/25 21:45 68 14 03/12/25 21:34 36.7 C 73 15 121/72 93 03/12/25 21:30 85 13 92 03/12/25 21:30 121/72 03/12/25 21:30 121/72 03/12/25 21:30 121/72 03/12/25 21:30 121/72 03/12/25 21:30 121/72 03/12/25 21:28 129/83 03/12/25 21:28 129/83 03/12/25 21:28 129/83 03/12/25 21:27 73 95 03/12/25 21:04 36.7 C 66 17 151/93 H 94 03/12/25 20:15 36.4 C L 88 18 178/118 H 96 03/12/25 20:09 36.7 C 71 17 178/118 H 94 03/12/25 20:09 03/12/25 20:09 69 Pulse Ox O2 Del Method O2 Del Method O2 Flow Rate 03/13/25 06:15 03/13/25 06:00 03/13/25 06:00 03/13/25 06:00 03/13/25 06:00 03/13/25 06:00 03/13/25 06:00 03/13/25 05:45 03/13/25 05:30 03/13/25 05:15 03/13/25 05:00 03/13/25 05:00 03/13/25 05:00 03/13/25 05:00 03/13/25 05:00 03/13/25 05:00 03/13/25 04:46 03/13/25 04:46 03/13/25 04:46 03/13/25 04:46 03/13/25 04:46 03/13/25 04:45 03/13/25 04:45 03/13/25 04:30 03/13/25 04:30 03/13/25 04:30 03/13/25 04:30 03/13/25 04:30 03/13/25 04:30 03/13/25 04:15 03/13/25 04:15 03/13/25 04:15 03/13/25 04:15 03/13/25 04:15 03/13/25 04:00 03/13/25 04:00 03/13/25 04:00 03/13/25 04:00 03/13/25 04:00 03/13/25 03:45 03/13/25 03:45 03/13/25 03:45 03/13/25 03:45 03/13/25 03:45 03/13/25 03:45 03/13/25 03:30 03/13/25 03:30 03/13/25 03:30 03/13/25 03:30 03/13/25 03:30 03/13/25 03:15 03/13/25 03:15 03/13/25 03:15 03/13/25 03:15 03/13/25 03:15 03/13/25 03:00 03/13/25 03:00 03/13/25 03:00 03/13/25 03:00 03/13/25 03:00 03/13/25 02:45 03/13/25 02:45 03/13/25 02:45 03/13/25 02:45 03/13/25 02:45 03/13/25 02:30 03/13/25 02:30 03/13/25 02:30 03/13/25 02:30 03/13/25 02:30 03/13/25 02:15 03/13/25 02:15 03/13/25 02:15 03/13/25 02:15 03/13/25 02:15 03/13/25 02:00 03/13/25 02:00 03/13/25 02:00 03/13/25 02:00 03/13/25 02:00 03/13/25 02:00 03/13/25 01:45 03/13/25 01:45 03/13/25 01:45 03/13/25 01:45 03/13/25 01:45 03/13/25 01:34 03/13/25 01:30 03/13/25 01:30 03/13/25 01:30 03/13/25 01:30 03/13/25 01:30 03/13/25 01:30 03/13/25 01:15 03/13/25 01:15 03/13/25 01:15 03/13/25 01:15 03/13/25 01:15 03/13/25 01:15 03/13/25 01:00 03/13/25 01:00 03/13/25 01:00 03/13/25 01:00 03/13/25 01:00 03/13/25 01:00 03/13/25 01:00 03/13/25 01:00 03/13/25 01:00 03/13/25 00:45 03/13/25 00:45 03/13/25 00:45 03/13/25 00:45 03/13/25 00:45 03/13/25 00:34 Nasal Cannula 4 03/13/25 00:30 03/13/25 00:30 03/13/25 00:30 03/13/25 00:30 03/13/25 00:30 03/13/25 00:15 03/13/25 00:15 03/13/25 00:15 03/13/25 00:15 03/13/25 00:15 03/13/25 00:15 03/13/25 00:15 03/13/25 00:15 03/13/25 00:15 03/13/25 00:15 03/13/25 00:00 03/13/25 00:00 03/13/25 00:00 03/13/25 00:00 03/13/25 00:00 03/13/25 00:00 03/13/25 00:00 03/12/25 23:45 03/12/25 23:45 03/12/25 23:45 03/12/25 23:45 03/12/25 23:45 03/12/25 23:45 03/12/25 23:34 Nasal Cannula 4 03/12/25 23:30 03/12/25 23:30 03/12/25 23:30 03/12/25 23:30 03/12/25 23:30 03/12/25 23:30 03/12/25 23:15 03/12/25 23:15 03/12/25 23:15 03/12/25 23:15 03/12/25 23:15 03/12/25 23:15 03/12/25 23:00 03/12/25 23:00 03/12/25 23:00 03/12/25 23:00 03/12/25 23:00 03/12/25 23:00 03/12/25 23:00 Nasal Cannula 4 03/12/25 22:45 03/12/25 22:45 03/12/25 22:45 03/12/25 22:45 03/12/25 22:45 03/12/25 22:34 Room Air 4 03/12/25 22:30 03/12/25 22:30 03/12/25 22:30 03/12/25 22:30 03/12/25 22:30 03/12/25 22:15 03/12/25 22:15 03/12/25 22:15 03/12/25 22:15 03/12/25 22:15 03/12/25 22:01 03/12/25 22:01 03/12/25 22:01 03/12/25 22:01 03/12/25 22:01 03/12/25 22:00 03/12/25 22:00 03/12/25 21:47 03/12/25 21:47 03/12/25 21:47 03/12/25 21:47 03/12/25 21:47 03/12/25 21:45 03/12/25 21:45 03/12/25 21:34 Room Air 03/12/25 21:30 03/12/25 21:30 03/12/25 21:30 03/12/25 21:30 03/12/25 21:30 03/12/25 21:30 03/12/25 21:28 03/12/25 21:28 03/12/25 21:28 03/12/25 21:27 03/12/25 21:04 Room Air 03/12/25 20:15 Room Air 03/12/25 20:09 Room Air 03/12/25 20:09 93 Room Air 03/12/25 20:09 Laboratory Results 03/13/25 03/13/25 03/12/25 07:18 04:14 Unknown WBC RBC Hgb Hct MCV MCH MCHC RDW Std Deviation RDW Coeff of Sherine Plt Count MPV Immature Gran % (Auto) Neut % (Auto) Lymph % (Auto) [place] % (Auto) Eos % (Auto) Baso % (Auto) Neut # (Auto) Lymph # (Auto) [place] # (Auto) Eos # (Auto) Baso # (Auto) Immature Gran # (Auto) Activ Coag Time Kaolin Sodium Potassium Chloride Carbon Dioxide Anion Gap BUN Creatinine Est Cr Clr Drug Dosing eGFR BUN/Creatinine Ratio Glucose POC Glucose 110 H Calcium Magnesium Troponin I High Sens 03716.4 H* Triglycerides 104 Cholesterol 177 LDL Cholesterol, Calc 115 VLDL Cholesterol, Calc 21 HDL Cholesterol 41 Cholesterol/HDL Ratio 4.3 Nasal Screen MRSA (PCR) Negative 03/12/25 03/12/25 03/12/25 20:53 20:43 19:25 WBC 6.51 RBC 4.95 Hgb 15.6 Hct 44.0 MCV 88.9 MCH 31.5 MCHC 35.5 RDW Std Deviation 45.2 RDW Coeff of Sherine 13.8 Plt Count 164 MPV 10.7 Immature Gran % (Auto) 0.3 Neut % (Auto) 63.8 Lymph % (Auto) 27.8 [place] % (Auto) 7.1 Eos % (Auto) 0.5 Baso % (Auto) 0.5 Neut # (Auto) 4.16 Lymph # (Auto) 1.81 [place] # (Auto) 0.46 Eos # (Auto) 0.03 Baso # (Auto) 0.03 Immature Gran # (Auto) 0.02 Activ Coag Time Kaolin 250 H Sodium 137 Potassium 3.5 Chloride 103 Carbon Dioxide 25 Anion Gap 9 BUN 11 Creatinine 0.68 Est Cr Clr Drug Dosing 95.4 eGFR 96.33 BUN/Creatinine Ratio 16.2 Glucose 115 H POC Glucose 104 H Calcium 8.9 Magnesium 1.9 Troponin I High Sens Triglycerides Cholesterol LDL Cholesterol, Calc VLDL Cholesterol, Calc HDL Cholesterol Cholesterol/HDL Ratio Nasal Screen MRSA (PCR) 03/12/25 03/12/25 03/12/25 18:55 18:31 18:11 WBC RBC Hgb Hct MCV MCH MCHC RDW Std Deviation RDW Coeff of Sherine Plt Count MPV Immature Gran % (Auto) Neut % (Auto) Lymph % (Auto) [place] % (Auto) Eos % (Auto) Baso % (Auto) Neut # (Auto) Lymph # (Auto) [place] # (Auto) Eos # (Auto) Baso # (Auto) Immature Gran # (Auto) Activ Coag Time Kaolin 256 H 245 H 170 H Sodium Potassium Chloride Carbon Dioxide Anion Gap BUN Creatinine Est Cr Clr Drug Dosing eGFR BUN/Creatinine Ratio Glucose POC Glucose Calcium Magnesium Troponin I High Sens Triglycerides Cholesterol LDL Cholesterol, Calc VLDL Cholesterol, Calc HDL Cholesterol Cholesterol/HDL Ratio Nasal Screen MRSA (PCR) Medications Administered Active Medications Generic Name Dose Route Start Last Admin Trade Name Freq PRN Reason Stop Dose Admin Sodium Chloride 1,000 mls @ 75 mls/hr 03/12/25 20:00 03/12/25 20:48 Nss IV 03/15/25 19:59 75 mls/hr .[id number] CARRINGTON Administration Metoprolol Tartrate 25 mg 03/12/25 21:00 03/12/25 20:47 Metoprolol Tartrate 25 Mg Tab PO 04/11/25 20:59 25 mg BID CARRINGTON Administration Miscellaneous 1 each 03/12/25 21:00 03/12/25 20:49 Icu Protocol For Hyperglycemia N/A 03/14/25 20:59 1 each ACHS CARRINGTON Administration Coding Level of Care Code 38699 SUB INP/OBS CARE 3/50MIN Diagnoses ST elevation (STEMI) myocardial infarction I21.3 HTN (hypertension) I10 Coronary artery disease I25.10 Time Spent (min) 55
--- NOTE | 2025-03-13 07:32 | Hospitalist Progress Note ---
Date of Service March 13, 2025 Assessment & Plan (1) ST elevation (STEMI) myocardial infarction: (2) HTN (hypertension): (3) Atherogenic dyslipidemia: (4) Current smoker: Plan The patient was transferred to [facility] emergency department from [facility] as a STEMI alert. He had developed chest pain around noon 03/12/25. He had taken 7 doses of 324 mg of aspirin prior to arrival there. He did receive morphine 4 mg IV, and was started on a heparin bolus/drip prior to transfer. He has a previous history of hypertension, coronary disease, atherogenic dyslipidemia, and benign essential hypertension. He was taken emergently to the cardiac [employer] by interventional cardiology Dr. Acosta where he received 4 overlapping drug-eluting stents to the RCA, proximal to early distal. STEMI/CAD/hypertension-patient has multivessel coronary disease including left main, LAD, and circumflex. Culprit lesion was felt to be the RCA subsequently this was stented persistent hypotension post procedure due to guideline based medications Status post cardiac catheterization emergently for with placement of 4 overlapping ROLO to the RCA lesion proximal to early distal. continues aspirin and plavix Continuing on Integrilin infusion Metoprolol tartrate 25 mg p.o. twice daily, losartan 25 mg p.o. every morning. pending hA1c and lipids this am Echo shows EF 45 to 50% and extensive RCA territory wall motion abnormalities with moderate-severe hypokinesis. Decision for staged intervention versus referral to tertiary center for CABG ongoing discussions with cardiology Hyperlipidemia- Atorvastatin 40 mg every morning. Fasting lipid panel in the a.m. Hemoglobin A1c in the a.m. Tobacco use disorder- Cessation counseling Patient refused patch GERD- Pantoprazole 40 mg every morning. Admission and Anticipated Discharge Date Admission Date: March 12, 2025 Subjective pt has no further symptoms except c/o significant fatigue, Physical Exam Physical Exam: cardiac is regular lungs are clear cath site is c/d/i Results & Data Results & Data Vital Signs (Past 12 Hours) Vital Signs Temp Pulse Pulse Resp BP BP Pulse Ox 03/13/25 06:15 84 16 97 03/13/25 06:00 68 19 96 03/13/25 06:00 95/63 L 03/13/25 06:00 95/63 L 03/13/25 06:00 95/63 L 03/13/25 06:00 95/63 L 03/13/25 06:00 95/63 L 03/13/25 05:45 67 24 96 03/13/25 05:30 66 12 95 03/13/25 05:15 60 19 96 03/13/25 05:00 75 24 99 03/13/25 05:00 96/66 L 03/13/25 05:00 96/66 L 03/13/25 05:00 96/66 L 03/13/25 05:00 96/66 L 03/13/25 05:00 96/66 L 03/13/25 04:46 89/57 L 03/13/25 04:46 89/57 L 03/13/25 04:46 89/57 L 03/13/25 04:46 89/57 L 03/13/25 04:46 89/57 L 03/13/25 04:45 61 23 96 03/13/25 04:45 78/51 L 03/13/25 04:30 91/59 L 03/13/25 04:30 91/59 L 03/13/25 04:30 91/59 L 03/13/25 04:30 91/59 L 03/13/25 04:30 91/59 L 03/13/25 04:30 75 27 H 98 03/13/25 04:15 66 16 97 03/13/25 04:15 101/63 03/13/25 04:15 101/63 03/13/25 04:15 101/63 03/13/25 04:15 101/63 03/13/25 04:00 64 19 94 03/13/25 04:00 94/56 L 03/13/25 04:00 94/56 L 03/13/25 04:00 94/56 L 03/13/25 04:00 94/56 L 03/13/25 03:45 65 16 96 03/13/25 03:45 103/59 L 03/13/25 03:45 103/59 L 03/13/25 03:45 103/59 L 03/13/25 03:45 103/59 L 03/13/25 03:45 103/59 L 03/13/25 03:30 59 L 16 03/13/25 03:30 88/54 L 03/13/25 03:30 88/54 L 03/13/25 03:30 88/54 L 03/13/25 03:30 88/54 L 03/13/25 03:15 66 29 H 95 03/13/25 03:15 97/60 L 03/13/25 03:15 97/60 L 03/13/25 03:15 97/60 L 03/13/25 03:15 97/60 L 03/13/25 03:00 98/60 L 03/13/25 03:00 98/60 L 03/13/25 03:00 98/60 L 03/13/25 03:00 98/60 L 03/13/25 03:00 64 22 96 03/13/25 02:45 66 24 03/13/25 02:45 97/61 L 03/13/25 02:45 97/61 L 03/13/25 02:45 97/61 L 03/13/25 02:45 97/61 L 03/13/25 02:30 70 19 94 03/13/25 02:30 103/66 03/13/25 02:30 103/66 03/13/25 02:30 103/66 03/13/25 02:30 103/66 03/13/25 02:15 72 25 H 03/13/25 02:15 102/63 03/13/25 02:15 102/63 03/13/25 02:15 102/63 03/13/25 02:15 102/63 03/13/25 02:00 111/65 03/13/25 02:00 111/65 03/13/25 02:00 111/65 03/13/25 02:00 111/65 03/13/25 02:00 71 19 94 03/13/25 02:00 98.4 F 03/13/25 01:45 95/56 L 03/13/25 01:45 95/56 L 03/13/25 01:45 95/56 L 03/13/25 01:45 95/56 L 03/13/25 01:45 71 20 95 03/13/25 01:34 98.2 F 03/13/25 01:30 85/48 L 03/13/25 01:30 85/48 L 03/13/25 01:30 85/48 L 03/13/25 01:30 85/48 L 03/13/25 01:30 85/48 L 03/13/25 01:30 66 21 03/13/25 01:15 63 18 03/13/25 01:15 96/62 L 03/13/25 01:15 96/62 L 03/13/25 01:15 96/62 L 03/13/25 01:15 96/62 L 03/13/25 01:15 96/62 L 03/13/25 01:00 104/65 03/13/25 01:00 104/65 03/13/25 01:00 104/65 03/13/25 01:00 104/65 03/13/25 01:00 104/65 03/13/25 01:00 104/65 03/13/25 01:00 104/65 03/13/25 01:00 68 17 03/13/25 01:00 98.2 F 03/13/25 00:45 108/66 03/13/25 00:45 108/66 03/13/25 00:45 108/66 03/13/25 00:45 108/66 03/13/25 00:45 66 18 94 03/13/25 00:34 98.2 F 67 15 104/65 95 03/13/25 00:30 96/62 L 03/13/25 00:30 96/62 L 03/13/25 00:30 96/62 L 03/13/25 00:30 96/62 L 03/13/25 00:30 66 22 03/13/25 00:15 97/62 L 03/13/25 00:15 97/62 L 03/13/25 00:15 97/62 L 03/13/25 00:15 97/62 L 03/13/25 00:15 97/62 L 03/13/25 00:15 97/62 L 03/13/25 00:15 97/62 L 03/13/25 00:15 97/62 L 03/13/25 00:15 97/62 L 03/13/25 00:15 69 17 03/13/25 00:00 103/66 03/13/25 00:00 103/66 03/13/25 00:00 103/66 03/13/25 00:00 103/66 03/13/25 00:00 68 17 03/13/25 00:00 69 03/13/25 00:00 98.4 F 03/12/25 23:45 68 17 94 03/12/25 23:45 108/62 03/12/25 23:45 108/62 03/12/25 23:45 108/62 03/12/25 23:45 108/62 03/12/25 23:45 108/62 03/12/25 23:34 98.4 F 79 16 97/62 L 96 03/12/25 23:30 97/59 L 03/12/25 23:30 97/59 L 03/12/25 23:30 97/59 L 03/12/25 23:30 97/59 L 03/12/25 23:30 97/59 L 03/12/25 23:30 68 17 03/12/25 23:15 17 96 03/12/25 23:15 113/65 03/12/25 23:15 113/65 03/12/25 23:15 113/65 03/12/25 23:15 113/65 03/12/25 23:15 113/65 03/12/25 23:00 69 18 03/12/25 23:00 108/67 03/12/25 23:00 108/67 03/12/25 23:00 108/67 03/12/25 23:00 108/67 03/12/25 23:00 108/67 03/12/25 23:00 98.4 F 67 14 97/62 L 95 03/12/25 22:45 65 15 03/12/25 22:45 108/71 03/12/25 22:45 108/71 03/12/25 22:45 108/71 03/12/25 22:45 108/71 03/12/25 22:34 98.2 F 69 15 106/69 94 03/12/25 22:30 106/69 03/12/25 22:30 67 16 92 03/12/25 22:30 106/69 03/12/25 22:30 106/69 03/12/25 22:30 106/69 03/12/25 22:15 68 18 87 L 03/12/25 22:15 95/65 L 03/12/25 22:15 95/65 L 03/12/25 22:15 95/65 L 03/12/25 22:15 95/65 L 03/12/25 22:01 88/60 L 03/12/25 22:01 88/60 L 03/12/25 22:01 88/60 L 03/12/25 22:01 88/60 L 03/12/25 22:01 88/60 L 03/12/25 22:00 74/56 L 03/12/25 22:00 66 14 90 03/12/25 21:47 92/59 L 03/12/25 21:47 92/59 L 03/12/25 21:47 92/59 L 03/12/25 21:47 92/59 L 03/12/25 21:47 92/59 L 03/12/25 21:45 78/55 L 03/12/25 21:45 68 14 03/12/25 21:34 98.1 F 73 15 121/72 93 03/12/25 21:30 85 13 92 03/12/25 21:30 121/72 03/12/25 21:30 121/72 03/12/25 21:30 121/72 03/12/25 21:30 121/72 03/12/25 21:30 121/72 03/12/25 21:28 129/83 03/12/25 21:28 129/83 03/12/25 21:28 129/83 03/12/25 21:27 73 95 03/12/25 21:04 98.1 F 66 17 151/93 H 94 03/12/25 20:15 97.5 F L 88 18 178/118 H 96 03/12/25 20:09 98.1 F 71 17 178/118 H 94 03/12/25 20:09 03/12/25 20:09 69 Pulse Ox O2 Del Method O2 Del Method O2 Flow Rate 03/13/25 06:15 03/13/25 06:00 03/13/25 06:00 03/13/25 06:00 03/13/25 06:00 03/13/25 06:00 03/13/25 06:00 03/13/25 05:45 03/13/25 05:30 03/13/25 05:15 03/13/25 05:00 03/13/25 05:00 03/13/25 05:00 03/13/25 05:00 03/13/25 05:00 03/13/25 05:00 03/13/25 04:46 03/13/25 04:46 03/13/25 04:46 03/13/25 04:46 03/13/25 04:46 03/13/25 04:45 03/13/25 04:45 03/13/25 04:30 03/13/25 04:30 03/13/25 04:30 03/13/25 04:30 03/13/25 04:30 03/13/25 04:30 03/13/25 04:15 03/13/25 04:15 03/13/25 04:15 03/13/25 04:15 03/13/25 04:15 03/13/25 04:00 03/13/25 04:00 03/13/25 04:00 03/13/25 04:00 03/13/25 04:00 03/13/25 03:45 03/13/25 03:45 03/13/25 03:45 03/13/25 03:45 03/13/25 03:45 03/13/25 03:45 03/13/25 03:30 03/13/25 03:30 03/13/25 03:30 03/13/25 03:30 03/13/25 03:30 03/13/25 03:15 03/13/25 03:15 03/13/25 03:15 03/13/25 03:15 03/13/25 03:15 03/13/25 03:00 03/13/25 03:00 03/13/25 03:00 03/13/25 03:00 03/13/25 03:00 03/13/25 02:45 03/13/25 02:45 03/13/25 02:45 03/13/25 02:45 03/13/25 02:45 03/13/25 02:30 03/13/25 02:30 03/13/25 02:30 03/13/25 02:30 03/13/25 02:30 03/13/25 02:15 03/13/25 02:15 03/13/25 02:15 03/13/25 02:15 03/13/25 02:15 03/13/25 02:00 03/13/25 02:00 03/13/25 02:00 03/13/25 02:00 03/13/25 02:00 03/13/25 02:00 03/13/25 01:45 03/13/25 01:45 03/13/25 01:45 03/13/25 01:45 03/13/25 01:45 03/13/25 01:34 03/13/25 01:30 03/13/25 01:30 03/13/25 01:30 03/13/25 01:30 03/13/25 01:30 03/13/25 01:30 03/13/25 01:15 03/13/25 01:15 03/13/25 01:15 03/13/25 01:15 03/13/25 01:15 03/13/25 01:15 03/13/25 01:00 03/13/25 01:00 03/13/25 01:00 03/13/25 01:00 03/13/25 01:00 03/13/25 01:00 03/13/25 01:00 03/13/25 01:00 03/13/25 01:00 03/13/25 00:45 03/13/25 00:45 03/13/25 00:45 03/13/25 00:45 03/13/25 00:45 03/13/25 00:34 Nasal Cannula 4 03/13/25 00:30 03/13/25 00:30 03/13/25 00:30 03/13/25 00:30 03/13/25 00:30 03/13/25 00:15 03/13/25 00:15 03/13/25 00:15 03/13/25 00:15 03/13/25 00:15 03/13/25 00:15 03/13/25 00:15 03/13/25 00:15 03/13/25 00:15 03/13/25 00:15 03/13/25 00:00 03/13/25 00:00 03/13/25 00:00 03/13/25 00:00 03/13/25 00:00 03/13/25 00:00 03/13/25 00:00 03/12/25 23:45 03/12/25 23:45 03/12/25 23:45 03/12/25 23:45 03/12/25 23:45 03/12/25 23:45 03/12/25 23:34 Nasal Cannula 4 03/12/25 23:30 03/12/25 23:30 03/12/25 23:30 03/12/25 23:30 03/12/25 23:30 03/12/25 23:30 03/12/25 23:15 03/12/25 23:15 03/12/25 23:15 03/12/25 23:15 03/12/25 23:15 03/12/25 23:15 03/12/25 23:00 03/12/25 23:00 03/12/25 23:00 03/12/25 23:00 03/12/25 23:00 03/12/25 23:00 03/12/25 23:00 Nasal Cannula 4 03/12/25 22:45 03/12/25 22:45 03/12/25 22:45 03/12/25 22:45 03/12/25 22:45 03/12/25 22:34 Room Air 4 03/12/25 22:30 03/12/25 22:30 03/12/25 22:30 03/12/25 22:30 03/12/25 22:30 03/12/25 22:15 03/12/25 22:15 03/12/25 22:15 03/12/25 22:15 03/12/25 22:15 03/12/25 22:01 03/12/25 22:01 03/12/25 22:01 03/12/25 22:01 03/12/25 22:01 03/12/25 22:00 03/12/25 22:00 03/12/25 21:47 03/12/25 21:47 03/12/25 21:47 03/12/25 21:47 03/12/25 21:47 03/12/25 21:45 03/12/25 21:45 03/12/25 21:34 Room Air 03/12/25 21:30 03/12/25 21:30 03/12/25 21:30 03/12/25 21:30 03/12/25 21:30 03/12/25 21:30 03/12/25 21:28 03/12/25 21:28 03/12/25 21:28 03/12/25 21:27 03/12/25 21:04 Room Air 03/12/25 20:15 Room Air 03/12/25 20:09 Room Air 03/12/25 20:09 93 Room Air 03/12/25 20:09 Laboratory Results Reviewed CBC reviewed chemistry Troponin 30 5000 down to 25,000 PG Care Time/CCT Total # of Minutes Spent Total Time Spent with Patient: Total time spent is greater than 50% in coordination of care (as documented) at patient's floor/unit and/or counseling patient: Coding Level of Care Code 53134 SUB INP/OBS CARE 3/50MIN Diagnoses ST elevation (STEMI) myocardial infarction I21.3 HTN (hypertension) I10 Atherogenic dyslipidemia E78.5 Current smoker F17.200
[2025-03-13 07:33] LABS: Hemoglobin A1C 5.9 % (4.5-5.6)
[2025-03-13] MEDS: CLOPIDOGREL BISULFATE 75 MG TAB PO SCH (07:51)
[2025-03-13] MEDS: ASPIRIN 325 MG ECTAB PO SCH (07:51)
[2025-03-13] MEDS: ATORVASTATIN 40 MG TAB PO SCH (07:51)
[2025-03-13] MEDS: LOSARTAN POTASSIUM 25 MG TAB PO SCH (07:52)
[2025-03-13 08:00] LABS: Hematocrit (blood only) 43.5 % (42.0-52.0); Hemoglobin 14.6 g/dl (14.0-18.0); Immature Granulocytes # (auto) 0.02 K/uL (0.01-0.20); Immature Granulocytes % (auto) 0.3 %; Mean Corpuscular Hemoglobin 30.2 pg (25.0-34.0); Mean Corpuscular Volume 89.9 fL (80.0-100.0); Platelet Count 156 K/uL (130-400); RDW Standard Deviation 46.5 fL (36.4-46.3); Red Blood Count 4.84 M/uL (4.70-6.10); White Blood Count 6.98 K/ul (4.8-10.8)
[2025-03-13 08:20] LABS: Anion Gap 8.0 (3-11); Blood Urea Nitrogen 13.0 mg/dl (6-23); Calcium 9.0 mg/dl (8.6-10.3); Carbon Dioxide 25.0 mmol/L (21-32); Chloride 105.0 mmol/L (98-107); Creatinine Clr Calc Pharmacy 96.8 ml/min; Glucose 120.0 mg/dl (70-99(Fasting)); Magnesium 1.9 mg/dl (1.7-2.4); Potassium 4.0 mmol/L (3.5-5.1); Sodium 138.0 mmol/L (136-145)
--- NOTE | 2025-03-13 13:55 | XCELERA ---
[id number] \\[id number]
--- NOTE | 2025-03-13 13:57 | Cardiology Progress Note ---
Date of Service March 13, 2025 Assessment & Plan (1) Coronary artery disease: Plan: No anginal symptoms at this time. He has not increased his activity yet. Recommend he ambulate in the room and then in the hallway with assistance. Blood pressure is slightly low. Does not seem to have any symptoms related to this while at rest but not sure what he would do if we stand him up and walk him. Heart rate is at target. We may need to have his losartan discontinued if he remains on the low normal blood pressure. Otherwise, hemoglobin A1c suggest prediabetes. His untreated LDL was 115 mg/dL. No other risk factors identifiable except for his age, gender, and tobacco abuse. Cardiac rehab recommended. Tobacco cessation recommended. Compliant with cardiac medications recommended. Assuming no further problems, he would be okay for outpatient referral to tertiary center. We will reevaluate that issue prior to discharge. (2) Atherogenic dyslipidemia: Plan: High risk. High intensity statin therapy initiated with atorvastatin 40 mg daily. Triglycerides were 104 mg/dL, total cholesterol 177 mg/dL, LDL 150 mg/dL and HDL 41 mg/dL. His risk in the short-term is actually very high and therefore the most aggressive LDL reduction target is recommended. We should be looking for a treated LDL of 50 mg/dL. (3) ST elevation (STEMI) myocardial infarction: Plan: Status post PCI of the RCA with extensive drug-eluting stent implantation. He has completed the Integrilin drip and will remain on Plavix 75 mg daily and aspirin 325 mg daily. After 30 days the aspirin can be reduced to 81 mg daily. We will continue to assess his functional status including symptoms and decide when referral to tertiary center will be most appropriate. (4) HTN (hypertension): Plan: Currently blood pressure is on the low side. He does not seem to be having sy mptoms other than fatigue which is probably more attributable to his recent SC and it is for his blood pressure. Continue on his current regimen but should we find that he has symptoms with standing, walking, or if his blood pressure remains in the 80s then we will need to reduce his losartan or discontinue it altogether. (5) Ischemic cardiomyopathy: Plan: No volume overload at this time. EF is mildly reduced and hopefully will improve after revascularization. For now, continue with metoprolol to tartrate. Consider discontinuation of losartan. Plan I will be calling his daughter for an update. Admission and Anticipated Discharge Date Admission Date: March 12, 2025 Subjective Patient was seen this morning in the ICU. He denied any chest discomfort or upper back pain. No dyspnea. He states he was fatigued but otherwise feeling well. Unfortunately, I did not get to see his daughter this morning. He is tolerating his medications but now refuses the NicoDerm patches. Notes that his blood pressure has been on the low side. He voices no other complaints or concerns at this time. Review of Systems Review of Systems: Negative except as per HPI Physical Exam Constitutional: WD/WN, vitals as above Neck: No JVD Respiratory: Clear to auscultation bilaterally. No wheezing, rhonchi, or rales. Diminished air movement. Cardiovascular: Regular rate and rhythm with occasional ectopy. No murmurs. 2+ distal pulses. Musculoskeletal: no cyanosis or clubbing, extremities motor strength 5/5 Neurologic: Cognition is intact. Speech is fluent. No focal deficits. Psychiatric: A+Ox3, euthymic affect Results & Data Vital Signs (Past 12 Hours) Vital Signs Temp Pulse Resp BP Pulse Ox 03/13/25 11:04 88/71 L 03/13/25 11:03 68 22 96 03/13/25 11:00 37.2 C 03/13/25 10:00 84/53 L 03/13/25 10:00 66 20 92 03/13/25 09:02 92/61 L 03/13/25 09:00 84 16 93 03/13/25 08:00 74 25 H 93 03/13/25 08:00 106/62 03/13/25 08:00 36.7 C 03/13/25 07:54 81 30 H 95 03/13/25 07:54 118/60 03/13/25 07:19 91/54 L 03/13/25 07:18 73 21 94 03/13/25 07:00 62 16 03/13/25 07:00 79/50 L 03/13/25 06:15 84 16 97 03/13/25 06:00 68 19 96 03/13/25 06:00 95/63 L 03/13/25 06:00 95/63 L 03/13/25 06:00 95/63 L 03/13/25 06:00 95/63 L 03/13/25 06:00 95/63 L 03/13/25 05:45 67 24 96 03/13/25 05:30 66 12 95 03/13/25 05:15 60 19 96 03/13/25 05:00 75 24 99 03/13/25 05:00 96/66 L 03/13/25 05:00 96/66 L 03/13/25 05:00 96/66 L 03/13/25 05:00 96/66 L 03/13/25 05:00 96/66 L 03/13/25 04:46 89/57 L 03/13/25 04:46 89/57 L 03/13/25 04:46 89/57 L 03/13/25 04:46 89/57 L 03/13/25 04:46 89/57 L 03/13/25 04:45 61 23 96 03/13/25 04:45 78/51 L 03/13/25 04:30 91/59 L 03/13/25 04:30 91/59 L 03/13/25 04:30 91/59 L 03/13/25 04:30 91/59 L 03/13/25 04:30 91/59 L 03/13/25 04:30 75 27 H 98 03/13/25 04:15 66 16 97 03/13/25 04:15 101/63 03/13/25 04:15 101/63 03/13/25 04:15 101/63 03/13/25 04:15 101/63 03/13/25 04:00 64 19 94 03/13/25 04:00 94/56 L 03/13/25 04:00 94/56 L 03/13/25 04:00 94/56 L 03/13/25 04:00 94/56 L 03/13/25 03:45 65 16 96 03/13/25 03:45 103/59 L 03/13/25 03:45 103/59 L 03/13/25 03:45 103/59 L 03/13/25 03:45 103/59 L 03/13/25 03:45 103/59 L 03/13/25 03:30 59 L 16 03/13/25 03:30 88/54 L 03/13/25 03:30 88/54 L 03/13/25 03:30 88/54 L 03/13/25 03:30 88/54 L 03/13/25 03:15 66 29 H 95 03/13/25 03:15 97/60 L 03/13/25 03:15 97/60 L 03/13/25 03:15 97/60 L 03/13/25 03:15 97/60 L 03/13/25 03:00 98/60 L 03/13/25 03:00 98/60 L 03/13/25 03:00 98/60 L 03/13/25 03:00 98/60 L 03/13/25 03:00 64 22 96 03/13/25 02:45 66 24 03/13/25 02:45 97/61 L 03/13/25 02:45 97/61 L 03/13/25 02:45 97/61 L 03/13/25 02:45 97/61 L 03/13/25 02:30 70 19 94 03/13/25 02:30 103/66 03/13/25 02:30 103/66 03/13/25 02:30 103/66 03/13/25 02:30 103/66 03/13/25 02:15 72 25 H 03/13/25 02:15 102/63 03/13/25 02:15 102/63 03/13/25 02:15 102/63 03/13/25 02:15 102/63 03/13/25 02:00 111/65 03/13/25 02:00 11165 03/13/25 02:00 111/65 03/13/25 02:00 11165 03/13/25 02:00 71 19 94 03/13/25 02:00 36.9 C PG Care Time/CCT Total # of Minutes Spent Total Time Spent with Patient: Total time spent is greater than 50% in coordination of care (as documented) at patient's floor/unit and/or counseling patient: Coding Level of Care Code 12263 SUB INP/OBS CARE 3/50MIN Diagnoses Coronary artery disease I25.[address] elevation (STEMI) myocardial infarction I21.3 HTN (hypertension) I10 Ischemic cardiomyopathy I25.5
[2025-03-13 20:17] LABS: Hematocrit (blood only) 40.3 % (42.0-52.0); Hemoglobin 13.6 g/dL (14.0-18.0); Immature Granulocytes # (auto) 0.02 K/uL (0.01-0.20); Immature Granulocytes % (auto) 0.3 %; Mean Corpuscular Hemoglobin 30.6 pg (25.0-34.0); Mean Corpuscular Volume 90.8 fL (80.0-100.0); Platelet Count 143 K/uL (130-400); RDW Standard Deviation 47.8 fL (36.4-46.3); Red Blood Count 4.44 M/uL (4.70-6.10); White Blood Count 7.80 K/ul (4.8-10.8)
[2025-03-14 04:56] LABS: Anion Gap 6.0 (3-11); Blood Urea Nitrogen 19.0 mg/dl (6-23); Calcium 8.6 mg/dl (8.6-10.3); Carbon Dioxide 24.0 mmol/L (21-32); Chloride 105.0 mmol/L (98-107); Creatinine Clr Calc Pharmacy 81.1 ml/min; Glucose 153.0 mg/dl (70-99(Fasting)); Potassium 4.5 mmol/L (3.5-5.1); Sodium 135.0 mmol/L (136-145)
[2025-03-14] MEDS ORDERED: NICOTINE POLACRILEX 2 MG GUM MT PRN (12:59)
--- NOTE | 2025-03-14 17:27 | Hospitalist Progress Note ---
Date of Service March 14, 2025 Assessment & Plan (1) ST elevation (STEMI) myocardial infarction: (2) HTN (hypertension): (3) Atherogenic dyslipidemia: (4) Current smoker: Plan The patient was transferred to [facility] emergency department from [facility] as a STEMI alert. He had developed chest pain around noon 03/12/25. He had taken 7 doses of 324 mg of aspirin prior to arrival there. He did receive morphine 4 mg IV, and was started on a heparin bolus/drip prior to transfer. He has a previous history of hypertension, coronary disease, atherogenic dyslipidemia, and benign essential hypertension. He was taken emergently to the cardiac [facility] [place] by interventional cardiology Dr. Acosta where he received 4 overlapping drug-eluting stents to the RCA, proximal to early distal. STEMI/CAD/hypertension-patient has multivessel coronary disease including left main, LAD, and circumflex. Culprit lesion was felt to be the RCA treated with PCI, ROLO x 4. TTE with mildly reduced EF 45-50% Continue ASA and Plavix Continue metoprolol 50 mg bid Continue low dose ARB, borderline hypotensive and unclear whether he will tolerate it yet LDL 115 --> initiated high potency statin, atorva 40 mg A1c 5.9% slightly elevated, increased risk of diabetes - job counselor wrt diet/lifestyle changes Tobacco smoking - counseled cessation 03/14, ordered PRN nicotine replacement Discussed with Dr. Acosta - mobilize, monitor overnight Cardiac surgery referral for multivessel CAD Cardiac rehab referral GERD- Pantoprazole 40 mg every morning. DVT ppx - has been on heparin, Integrilin, and now DAPT. Start heparinoid sq if staying past tomorrow Discussed with RN, transfer to PCU I updated his daughter at bedside 03/14 Admission and Anticipated Discharge Date Admission Date: March 12, 2025 Subjective Nick is a 75-year-old man with a history of smoking and GERD who came in after having a heart attack. He was found to have multiple blocked arteries, with the main problem being in the RCA, where he had four stents placed. He also has significant blockages in the left main artery, LAD, and circumflex. He is here w ith his daughter. Nick reports feeling generally tired and unwell, and he has a headache on the right side at the top of his head. His daughter mentioned that these symptoms were present when everything started. He is not experiencing any chest pain, shortness of breath, leg swelling, abdominal pain, nausea, or vomiting. Physical Exam Physical Exam: General Appearance: Normal. Vital signs: Reviewed past 24h vital signs in EMR, notable for: BP borderline hypotensive/low normal. HEENT: Within normal limits. Respiratory: Within normal limits. Extremities: warm and well perfused, no LE edema. Skin: Warm and dry, no rash. Neurological: AOx4, normal speech and mentation, russo x 4. Psychiatric: Normal. Results & Data Results & Data Vital Signs (Past 12 Hours) Vital Signs Temp Pulse Pulse Resp BP BP Pulse Ox 03/14/25 16:49 83 03/14/25 16:47 36.8 C 91 H 20 116/70 94 03/14/25 14:06 79 28 H 97 03/14/25 13:54 89 21 96 03/14/25 13:24 115/62 03/14/25 13:24 74 28 H 95 03/14/25 13:00 79 29 H 96 03/14/25 12:01 104/61 03/14/25 12:00 68 26 H 95 03/14/25 11:26 134/67 03/14/25 11:24 66 19 91 03/14/25 11:00 57 L 17 95 03/14/25 10:00 71 27 H 94 03/14/25 10:00 108/63 03/14/25 09:00 121/72 03/14/25 09:00 79 21 96 03/14/25 08:46 36.9 C 03/14/25 08:00 03/14/25 08:00 94 H 22 95 03/14/25 08:00 115/60 03/14/25 07:00 79 29 H 92 03/14/25 07:00 129/73 03/14/25 06:45 62 24 93 03/14/25 06:30 74 24 94 03/14/25 06:15 60 26 H 94 03/14/25 06:00 63 27 H 95 03/14/25 06:00 102/57 L 03/14/25 06:00 102/57 L 03/14/25 06:00 102/57 L 03/14/25 06:00 102/57 L 03/14/25 06:00 102/57 L 03/14/25 05:45 65 26 H 94 03/14/25 05:30 77 15 95 O2 Del Method 03/14/25 16:49 03/14/25 16:47 Room Air 03/14/25 14:06 03/14/25 13:54 03/14/25 13:24 03/14/25 13:24 03/14/25 13:00 03/14/25 12:01 03/14/25 12:00 03/14/25 11:26 03/14/25 11:24 03/14/25 11:00 03/14/25 10:00 03/14/25 10:00 03/14/25 09:00 03/14/25 09:00 03/14/25 08:46 03/14/25 08:00 Room Air 03/14/25 08:00 03/14/25 08:00 03/14/25 07:00 03/14/25 07:00 03/14/25 06:45 03/14/25 06:30 03/14/25 06:15 03/14/25 06:00 03/14/25 06:00 03/14/25 06:00 03/14/25 06:00 03/14/25 06:00 03/14/25 06:00 03/14/25 05:45 03/14/25 05:30 Laboratory Results - Laboratory Studies: - WBC: 7 - Hgb: 13.6 - Na: 135 - K: 4.5 - Cr: 0.8 - LDL: 115 - Imaging: - TTE: mildly low EF 45-50% PG Care Time/CCT Total # of Minutes Spent Total Time Spent with Patient: Total time spent is greater than 50% in coordination of care (as documented) at patient's floor/unit and/or counseling patient: Coding Level of Care Code 12258 SUB INP/OBS CARE 3/50MIN Diagnoses ST elevation (STEMI) myocardial infarction I21.3 HTN (hypertension) I10 Atherogenic dyslipidemia E78.5 Current smoker F17.200
[2025-03-14 22:26] LABS: Hematocrit (blood only) 37.2 % (42.0-52.0); Hemoglobin 12.6 g/dL (14.0-18.0); Immature Granulocytes # (auto) 0.03 K/uL (0.01-0.20); Immature Granulocytes % (auto) 0.4 %; Mean Corpuscular Hemoglobin 30.6 pg (25.0-34.0); Mean Corpuscular Volume 90.3 fL (80.0-100.0); Platelet Count 125 K/uL (130-400); RDW Standard Deviation 47.9 fL (36.4-46.3); Red Blood Count 4.12 M/uL (4.70-6.10); White Blood Count 8.46 K/ul (4.8-10.8)
[2025-03-15 09:08] LABS: Anion Gap 7.0 (3-11); Blood Urea Nitrogen 16.0 mg/dl (6-23); Calcium 8.9 mg/dl (8.6-10.3); Carbon Dioxide 24.0 mmol/L (21-32); Chloride 106.0 mmol/L (98-107); Creatinine Clr Calc Pharmacy 92.7 ml/min; Glucose 154.0 mg/dl (70-99(Fasting)); Potassium 4.0 mmol/L (3.5-5.1); Sodium 137.0 mmol/L (136-145)
[2025-03-15 10:45] VITALS: RESP 18; O2SAT 95
--- NOTE | 2025-03-15 12:12 | Discharge Summary ---
Discharge Summary Date of Service March 15, 2025 Principal Dx & Hospital Course #1 = Principal Diagnosis (1) ST elevation (STEMI) myocardial infarction: (2) HTN (hypertension): (3) Atherogenic dyslipidemia: (4) Current smoker: Plan The patient was transferred to [facility] emergency department from [facility] as a STEMI alert. He had developed chest pain around noon 03/12/25. He had taken 7 doses of 324 mg of aspirin prior to arrival there. He did receive morphine 4 mg IV, and was started on a heparin bolus/drip prior to transfer. He has a previous history of hypertension, coron naye disease, atherogenic dyslipidemia, and benign essential hypertension. He was taken emergently to the cardiac Plant Att[facility] by interventional cardiology Dr. Acosta where he received 4 overlapping drug-eluting stents to the RCA, proximal to early distal. STEMI/CAD/hypertension -patient has multivessel coronary disease including left main, LAD, and circumflex. Culprit lesion was felt to be the RCA treated with PCI, ROLO x 4. TTE with mildly reduced EF 45-50% Continue ASA and Plavix Continue metoprolol 50 mg bid Continue low dose ARB, consider SNRI as outpatient LDL 115 --> initiated high potency statin, atorva 40 mg A1c 5.9% slightly elevated, increased risk of diabetes - counseled wrt diet/lifestyle changes Tobacco smoking - counseled cessation 03/14, ordered PRN nicotine replacement Follow up with Dr. Acosta Cardiac surgery referral for multivessel CAD Cardiac rehab referral GERD- Pantoprazole 40 mg every morning. Notes For Next Care Provider STEMI DESx4 to RCA Multivessel disease - CT surgery referral (safety risk lead will make) Medication Changes From Visit ASA and Plavix Increased statin Continue metoprolol and ARB Discharge Exam General Appearance: Normal. Vital signs: Reviewed past 24h vital signs in EMR, BPs improved no longer low and now normal HEENT: Within normal limits. Respiratory: Within normal limits. Extremities: warm and well perfused, no LE edema. Skin: Warm and dry, no rash. Neurological: AOx4, normal speech and mentation, russo x 4. Psychiatric: Normal. Discharge Plan Discharge Items Patient Disposition: Home - Self-Care Reason For Visit: STEMI HEART ALERT Discharge Diagnosis: STEMI Condition on Discharge: Fair Activity: Per Instructions section Non-emergency contact: Primary Care Provider and Leaf Conditioner Call non-emergency contact if: you have any medication questions and your symptoms worsen Follow-up/Referrals: López Acosta MD, PhD [Physician] - 03/19/25 8:30 am (Dr. Acosta - 03/19/25 at 8:30) PCP,NO [Primary Care Provider] - Diet: Heart Healthy Addtl Attending Provider Instructions: You were treated for serious heart attack Four stents were placed in your right coronary artery You have other heart arteries that are clogged up and may benefit from evy tional interventions including possible heart surgery - Dr. Acosta will make a referral to surgeon for evaluation Its critical to continue aspirin and plavix to keep your stents open, typically at least a year of both Do NOT stop one or both of these early, unless safety risk lead tells you to do so, or in an emergency under the direction of physicians. Also do not run out make sure you get refills of plavix on time. Stopping early or missing doses can lead to a severe heart attack from stent closing up. Rarely, plavix can cause or exacerbate low platelet count. Seek medical attention if you develop abnormal bleeding or a pinpoint rash especially on your legs, dark urine or low urine output. Some increase in bruising or minor / self limited bleeding is common on aspirin and plavix (nosebleed, hemorrhoid bleeding). Other medications include: Atorvastatin - lowers cholesterol and prevents heart attack and stroke. Common side effects include muscle pain or weakness. Metoprolol - protects the heart muscle and helps it heal, slows heart rate Losartan - helps heart muscle heal, reduces workload on the heart Metoprolol and losartan can cause low blood pressure, but your BPs are good at this time Omeprazole changed to similar medication called pantoprazole (because of drug interaction between omeprazole and plavix) Follow up with Dr. Acosta I strongly recommend quitting smoking as we discussed Nicotine replacement may be helpful and is available over the counter You are slightly prediabetic. The treatment for this is to improve your diet by avoiding sweets and try to replace "white" carbohydrates like bread, rice, potato with whole grains. Cardiac rehabilitation program will help get you exercising safely following this heart attack. Dr. Acosta will make a referral. It was a pleasure taking care of you in the hospital, Madelyn Lira MD Pending Studies at Discharge: No Studies:: cardiology followup 03/19/2025 @ 08:30 am [facility] [place] cardi[place] office, [address], [address] Stand-Alone Forms: My [facility], Smoking Cessation Medications and DC Order Prescriptions: New atorvastatin 40 mg Tablet 40 mg PO QAM Qty: 90 3RF clopidogrel 75 mg Tablet 75 mg PO QAM Qty: 90 3RF losartan 25 mg tablet 25 mg PO QAM Qty: 90 3RF aspirin [Ecotrin] 325 mg Tablet,Delayed Release (Dr/Ec) 325 mg PO QAM Qty: 30 0RF metoprolol tartrate 25 mg Tablet 25 mg PO BID Qty: 180 3RF pantoprazole 40 mg tablet,delayed release (DR/EC) 40 mg PO DAILY Qty: 30 1RF Discharge Orders: Discharge Order (Routine); Ordered 03/15/25 Ordered By: Madelyn Lira Admission Data Admit Date/Time: 03/12/25 20:09 Attending Provider: Madelyn Lira Admit Provider: Shadi Brizuela Primary Care Provider: PCP,NO Other Providers: James Ingram; López Acosta Other Interventions: Discharge Summary Assessment (RN) Last Done: 03/15/25 12:24 Hospital Stay Data Consultations 03/12/25 19:56 Consult Cardiac Rehabilitation Routine 03/12/25 20:09 Consult Condenser Cleaner Routine 03/13/25 12:21 Consult Cardiology Routine Procedures Performed Operation Date: 03/12/25 05:45 Actual Procedures p Cineradiography w/Routine Exam - López Acosta MD, PhD p Aspiration/PCI w/ROLO for Stemi - López Acosta MD, PhD Diagnostic Imagining Performed 03/12/25 17:43 CL Cath Imgs for PACS use only Stat Pending Results Patient Have Any Pending Studies at Discharge: No Discharge Instructions Given to Patient (Per Discharging Provider) You were treated for serious heart attack Four stents were placed in your right coronary artery You have other heart arteries that are clogged up and may benefit from additional interventions including possible heart surgery - Dr. Acosta will make a referral to surgeon for evaluation Its critical to continue aspirin and plavix to keep your stents open, typically at least a year of both Do NOT stop one or both of these early, unless safety risk lead tells you to do so, or in an emergency under the direction of physicians. Also do not run out make sure you get refills of plavix on time. Stopping early or missing doses can lead to a severe heart attack from stent closing up. Rarely, plavix can cause or exacerbate low platelet count. Seek medical attention if you develop abnormal bleeding or a pinpoint rash especially on your legs, dark urine or low urine output. Some increase in bruising or minor / shivam f limited bleeding is common on aspirin and plavix (nosebleed, hemorrhoid bleeding). Other medications include: Atorvastatin - lowers cholesterol and prevents heart attack and stroke. Common side effects include muscle pain or weakness. Metoprolol - protects the heart muscle and helps it heal, slows heart rate Losartan - helps heart muscle heal, reduces workload on the heart Metoprolol and losartan can cause low blood pressure, but your BPs are good at this time Omeprazole changed to similar medication called pantoprazole (because of drug interaction between omeprazole and plavix) Follow up with Dr. Acosta I strongly recommend quitting smoking as we discussed Nicotine replacement may be helpful and is available over the counter You are slightly prediabetic. The treatment for this is to improve your diet by avoiding sweets and try to replace "white" carbohydrates like bread, rice, potato with whole grains. Cardiac rehabilitation program will help get you exercising safely following this heart attack. Dr. Acosta will make a referral. It was a pleasure taking care of you in the hospital, Madelyn Lira MD Total Time Total Time Spent Total Time Spent (In Minutes): I personally spent: 35 minutes today on clinical care activities including: reviewing chart notes and vital signs reviewing labs reviewing studies discussion with franchise business consultant(s) safety risk lead examining and counseling the patient writing prescriptions, discharge instructions documentation Coding Level of Care Code 27803 INP/OBS DISCH >[address] elevation (STEMI) myocardial infarction I21.3 HTN (hypertension) I10 Atherogenic dyslipidemia E78.5 Current smoker F17.200
[2025-03-15 15:29] VITALS: BP 108/67; PULSE 70; TEMP 98.8
--- NOTE | 2025-03-16 07:50 | Electrocardiogram Report ---
Test Reason : Blood Pressure : */* mmHG Vent. Rate : 68 BPM Atrial Rate : 68 BPM P-R Int : 154 ms QRS Dur : 96 ms QT Int : 372 ms P-R-T Axes : 18 25 -12 degrees QTcB Int : 395 ms Sinus rhythm with Premature atrial complexes Inferior infarct Acute Cannot rule out Anterior infarct , age undetermined Abnormal ECG No previous ECGs available Confirmed by Jean Pedraza ([id number]) on 03/16/2025 7:49:33 AM Referred By: REFERRED SELF Confirmed By: Jean Pedraza
--- NOTE | 2025-03-16 07:50 | Electrocardiogram Report ---
Test Reason : Blood Pressure : */* mmHG Vent. Rate : 77 BPM Atrial Rate : * BPM P-R Int : * ms QRS Dur : 100 ms QT Int : 374 ms P-R-T Axes : * 23 -29 degrees QTcB Int : 423 ms Sinus rhythm Premature atrial complexes Inferior infarct (cited on or before 12-Mar-2025) Cannot rule out Anterior infarct (cited on or before 12-Mar-2025) Abnormal ECG When compared with ECG of 12-Mar-2025 17:41, (unconfirmed) Serial changes of evolving Inferior infarct Confirmed by Jean Pedraza ([id number]) on 03/16/2025 7:50:20 AM Referred By: REFERRED SELF Confirmed By: Jean Pedraza
--- NOTE | 2025-03-16 07:58 | Electrocardiogram Report ---
Test Reason : Blood Pressure : */* mmHG Vent. Rate : 77 BPM Atrial Rate : 76 BPM P-R Int : 190 ms QRS Dur : 94 ms QT Int : 406 ms P-R-T Axes : 66 7 -36 degrees QTcB Int : 459 ms Poor data quality, interpretation may be adversely affected Sinus rhythm Premature atrial complexes Inferior infarct (cited on or before 12-Mar-2025) Anterior infarct (cited on or before 12-Mar-2025) T wave abnormality, consider lateral ischemia Abnormal ECG When compared with ECG of 12-Mar-2025 17:44, (unconfirmed) Serial changes of evolving Anterior infarct Present Serial changes of evolving Inferior infarct Present Confirmed by Jean Pedraza ([id number]) on 03/16/2025 7:58:02 AM Referred By: REFERRED SELF Confirmed By: Jean Pedraza
--- NOTE | 2025-03-21 09:51 | Cardiac Catheterization ---
ACC Data: Tobacco Sorter Cardiac Status Clinical evaluation leading to the procedure CAD Presenation: STEMI Anginal Classification: CCS IV Cardiogenic Shock within 24 Hours: No Cardiac Arrest within 24 Hours: No Imaging Studies Past 6 Months: No Stress Studies Past 6 Months: No Coronary Anatomy Dominant: Right Left Main (% Stenosis): Distal (60-70%) LAD (% Stenosis): Proximal (Aneurysmal) and Mid (Diffuse moderate disease) D1 (% Stenosis): Proximal (95%) D2 (% Stenosis): Proximal (95 percent) Circumflex (% Stenosis): Ostial (50-70%) and Distal (100%) OM1 (% Stenosis): Proximal (95%) OM2 (% Stenosis): Proximal and Mid (80%) L PL1 (% Stenosis): Ostial (100%) RCA (% Stenosis): Proximal (100%) Diagnostic Physicians Name: López Acosta MD, PhD Closure Device Percutaneous Entry Location: Radial Closure Device: Radial Band Recommendations: Medical Therapy and/or Counseling, PCI without planned CABG and CABG PCI Indication: PCI for STEMI - Unstable First Noted: First EKG Lesion Segment Name: Proximal to mid RCA Culprit Artery: Yes Stenosis Prior to Rx (%): 100% Chronic Total Occlusion: No Pre-Procedure GILMER Flow: 0 Previously Treated Lesion: No Lesion Complexity: High/C Lesion Length (mm): 40 mm Thrombus Present: Yes Bifurcation Lesion: No Guidewire Across Lesion: Yes Intraprocedure Events Significant Disection: No Perforation: No Cardiac Cath Procedure Full Procedure Date March 08, 2025 Pre-Procedure Diagnosis Pre-Procedure Diagnosis: STEMI AUC Score AUC Score: 09 Post-Procedure Diagnosis Post-Procedure Diagnosis: Severe CAD and Successful PCI Procedure(s) Performed Procedure(s) Performed: Coronary Angiography and Drug Eluting Stent Test Lead Application Testing López Acosta MD, PhD Estimated Blood Loss Estimated Blood Loss: 10 cc Medication(s) Medication(s): Clopidogrel, Fentanyl, Heparin, Integrilin, Lidocaine 1%, Nicardipine, Nitroglycerin and Versed Summary of Findings Brief description: Patient was brought to the cardiac catheterization suite where he was shaved and prepped in a sterile fashion. Sedated using IV Versed and fentanyl. Soft ti ssue of the right wrist were anesthetized using 2 mL of 1% Xylocaine. The right radial artery was accessed using modified Seldinger technique and 6 [place] radial artery glide sheath was placed. Patient was provided anticoagulation with IV heparin and antispasmodics including nicardipine and nitroglycerin. All catheters were advanced and exchanged over a 0.035 J-tip wire. Left coronary angiography in orthogonal views with a 5 [place] 4 diagnostic catheter. Right coronary angiography in orthogonal views with a 6 [place] JR4 guide catheter. Decision was made to proceed with PCI of the RCA. ACT was checked and additional heparin was provided to maintain therapeutic anticoagulation. This was repeated several times throughout the course of the case. The 6 [place] JR4 guide catheter was engaged in the right coronary. A BMW universal guidewire was advanced through the guide catheter and positioned distally. Predilatation of the occluded vessel with a 2.0 x 12 mm trek balloon initially at 8 carmen followed by a second inflation to 14 carmen. Additional heparin provided. Further predilatation with a 2.5 x 12 mm trek balloon and 14 carmen x 2. Balloon was removed. Mid RCA was stented with a 2.5 x 18 mm drug-eluting stent as well as a 2.75 x 15 mm drug-eluting stent. These were overlapped. A 2.75 x 22 mm drug-eluting stent failed to pass as did a 2.75 x 18 mm drug-eluting stent despite the use of GuideLiner guide catheter and multiple wires. The proximal RCA was stented with a 2.5 x 15 mm drug-eluting stent which was postdilated with a 3.0 x 9 mm NC sprinter balloon. A short 2.75 x 8 mm drug- eluting stent was used to bridge the gap between the proximal and mid stents with inflations ranging from 12 to 17 carmen to taper the sizes from proximal to distal. Finally, during injection it was noted that clot from the distal ectatic section had embolized into the posterolateral branch causing complete occlusion. We tried to pass a BMW wire into this vessel using a 2.0 x 8 mm trek balloon as backup with the intention to use it to dilate the ostium which was known to be severely diseased. However, we could not successfully crossed the ostium and therefore we were unable to dilate the ostium of the posterolateral branch. Since there was noted to be collaterals from the left to right to this area no further attempts were made. Guidewire and balloon was removed. Final angiographic evaluation was performed. Guide catheter was then removed. Radial artery sheath was removed. Hemostasis was obtained using the TR band. Patient was then admitted to the ICU for further workup and management. This ended the case. Coronary angiography findings: CJS-miptj-jfyaehg vessel bifurcating into LAD and circumflex. There is a distal 60 to 70% stenosis. LAD-large caliber. Proximal segment is aneurysmal. The mid LAD has diffuse moderate disease in the distal vessel tapers with probably mild diffuse disease at most. LAD provides a large septal branch, a first diagonal which has proximal 95% stenosis, and a second diagonal with proximal 95% stenosis. There is also a third diagonal without significant disease. There is noted to be lgpo-qy-fxfaz collateralization. ZCr-qgkik-ogwbtjs and nondominant. Travels in the AV groove where it gives an OM1, OM 2, and posterolateral branch. Ostial circumflex with 50 to 70% stenosis, distal 100% occluded at the ostium of the posterolateral branch. OM1 has proximal 95% stenosis and OM 2 has proximal 90% and mid 80% stenosis. There is diffuse disease throughout the circumflex and its branches. RCA-large and dominant. Proximal 100% thrombotic occlusion-with GILMER 0 flow. PCI of RCA-proximal to mid stenting with multiple overlapped drug-eluting stents. Adequate angiographic result. There are some mild residual plaques and ectatic areas. Less than 10% residual stenosis. Distal RCA yu[place]iatam vessel with ectasia and mild luminal irregularities. Just before the bifurcation tubular stenosis of unclear severity given the ectasia preceding it. Vessel bifurcates into the PDA and posterolateral branch. Residual occlusion of the posterolateral branch. PDA is small in caliber with multiple severe lesions noted. GILMER-3 flow post PCI No evidence of dissection or perforation post PCI Summary: 1. Severe multivessel coronary disease including distal left main, circumflex, and acute occlusion of the RCA which is the culprit for his acute ST elevation FL. 2. Successful PCI of the RCA with implantation of multiple overlapped drug- eluting stents to the proximal and mid vessel. Unable to open the severely diseased posterolateral branch which occluded during the procedure when clot embolized from the ectatic distal vessel. Known collaterals to this area. 3. Patient with significant residual coronary disease in the left coronary syst em. 4. Patient's stents were exclusively Aj ROLO. He will remain on dual antiplatelet therapy with aspirin and Plavix to complete 30 days minimum therapy. If he has persistent chest discomfort during hospitalization he will be transferred to tertiary center to be considered for surgical revascularization or complex high risk PCI. If he does not have any symptoms then we will try to make it at least 30 days on the dual antiplatelet therapy and make an outpatient referral to tertiary center heart team regarding revascularization of residual disease. 5. Patient will be initiated on guideline directed medical therapy for secondary prevention of coronary disease to include aspirin, angiotensin receptor sumit, beta-sumit, and high intensity statin therapy. Hemodynamics Rest Ao:: 148/86 mmHg Final Ao: 163/83 mmHg LV: Not performed Recommendations Recommendations: Medical Therapy and/or Counseling, PCI without planned CABG and CABG Radiation Exposure (mGy) 3912 mGy, fluoroscopy time 29 minutes Contrast (mls) 150 cc Anesthesia 1 mg Versed, 25 mcg fentanyl. Start time 180, end time 1923 Procedural Complication(s) None Disposition ICU I attest to the content of the Intraoperative Record and any orders documented therein. Any exceptions are noted below. [facility] Card Cath Procedure Codes Cardiac Catheterization Procedure 1: Cardiovascular Cath Procedures: 58462 Coronaries Moderate Sedation Procedure 1: Sedation/Anesthesia: 01581 Mod Sedation by the same physician;Init15 Min Child Age 5 & Up (Initial 15 minutes. Start time 180) Procedure 2: Sedation/Anesthesia: 65647 Mod Sedation by the same physician; Ea [id number] Minutes (Additional 78 minutes, end time 1923) Stenting Procedure 1: Cardiovascular Stent Procedures: 61073 Perc transluminal revascularization of acute sub/total occl, aMI (RCA) PG Care Time/CCT Total # of Minutes Spent Total Time Spent with Patient: Total time spent is greater than 50% in coordination of care (as documented) at patient's floor/unit and/or counseling patient:
== END 2025-03-15 19:07 | disposition home or self-care (01) | DRG 321 ==
LOC: ED 17:37 → CC 17:54 → SUATTDRO 20:09 → 1E 20:09 → 2S 03-14 20:01